=== PATIENT | female | born 1960 | race African-American/Black ===

== ENCOUNTER 2017-02-04 21:03 | Inpatient (IN) | payer OTHER ==
[~2017-02-04] VITALS: Ht 157.5 cm; Wt 53.1 kg
[~2017-02-04 21:03] MED LIST: CEPH-264 PO; HYDR-971 PO; IPRA4AER IH; LEVO750T31 PO; PRED-220 PO
[2017-02-04] MEDS ORDERED: PREDNISONE 20 MG TABLET PO ONE (21:45)
[2017-02-04] MEDS ORDERED: IV NORMAL SALINE 1000ML BAG 1,000 ML IV SCH (21:45)
[2017-02-04] MEDS ORDERED: IPRATRPIUM/ALBUTEROL 0.5/2.5MG 3 ML NEBU. NEB ONE (21:45)
[2017-02-04] MEDS ORDERED: ASPIRIN 81 MG TAB.CHEW PO ONE (21:45)
[2017-02-04 21:56] LABS: BASO # 0.1 x10^3/uL (0.0-0.2); BASO % 1 % (0-3); EOS % 0 % (0-3); HEMOGLOBIN 12.1 g/dL (12.0-15.5); LYMPH # 1.1 x10^3/uL (1.0-4.8); LYMPH % 12 % (24-48); MEAN CORPUSCULAR HEMOGLOBIN 20 pg (25-35); MEAN CORPUSCULAR HGB CONC 32 g/dL (31-37); MEAN CORPUSCULAR VOLUME 64 fL (79-100); MONO % 13 % (0-9); NEUT % 74 % (31-73); PLATELET COUNT 233 x10^3/uL (140-400); RED BLOOD COUNT 5.98 x10^6/uL (3.50-5.40); RED CELL DISTRIBUTION WIDTH 15.4 % (11.5-14.5); WHITE BLOOD COUNT 9.1 x10^3/uL (4.0-11.0)
[2017-02-04 22:09] LABS: CALCIUM 9.5 mg/dL (8.5-10.1); CREATININE 0.9 mg/dL (0.6-1.0); GFR 78.1; POTASSIUM 3.8 mmol/L (3.5-5.1)
[2017-02-04 22:14] LABS: OBC FLU VALID
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
[2017-02-05] MEDS ORDERED: ONDANSETRON PF 4 MG/2 ML VIAL. IV PRN
[2017-02-05] MEDS ORDERED: ACETAMINOPHEN 325 MG TABLET. PO PRN
--- NOTE | 2017-02-05 00:30 | ACF ---
Admission Forms Criteria COPD Clinical Indications for Admission to Inpatient Care (Place 'X' for any and all applicable criteria): Admission is indicated for ANY ONE of the following (1)(2)(3): [X]I. Acute exacerbation by high-risk comorbidity (e.g., pneumonia, dysrhythmia, heart failure, pleural effusion, pneumothorax) or severe underlying COPD (e.g., steroid dependent) [ ]II. Inpatient admission required rather than observation care (see Chronic Obstructive Pulmonary Disease: Observation Care) because of ANY ONE of the following: [ ]a) New or pre-existing signs or symptoms of COPD (eg, dyspnea or Tachypnea at rest or with minimal activity) that persist despite outpatient and observation care treatment [ ]b) New-onset hypoxemia (room air SaO2 less than 90%, PO2 less than 60 mm Hg (8.0 kPa)) that persists despite outpatient and observation care treatment [ ]c) Worsening of pre-existing hypoxemia (eg, new or increased requirement for supplemental oxygen to maintain oxygenation at baseline level) that persists despite outpatient and observation care treatment, with oxygen treatment needs performable only in acute inpatient setting [ ]d) Hypercarbia (PCO2 greater than 40 mm Hg (5.3 kPa))-induced respiratory acidosis (pH less than 7.35) that persists despite outpatient and observation care treatment [ ]e) Supplemental oxygen or respiratory treatments for over 24 hours that are performable only in acute inpatient setting [ ]f) Chest tube placement with active evacuation (e.g., suction, drainage) (5) [ ]g) Other condition, treatment or monitoring requiring inpatient admission [ ]III. Planned invasive surgical or diagnostic procedures requiring acute- care hospitalization [ ]IV. Acute respiratory failure (e.g., uncompensated hypercarbia, severe hypoxemia) [ ]V. Severe comorbid condition (e.g., severe steroid myopathy, acute vertebral fracture) that has acutely worsened pulmonary function [ ]. Confusion state, lethargy, obtundation, stupor or coma Extended stay beyond goal length of stay may be needed for (31)(32): [ ]a ) Respiratory Failure. [ ]b) Severe or persisting hypoxemia or hypercarbia [ ]c) Severe or persistent dyspnea [ ]d) Comorbidities (e.g. chronic heart failure, atrial fibrillation with rapid response, pneumonia) [ ]e) Malnutrition The original [facility] content created by [facility] has been revised. The portions of the content which have been revised are identified through the use of italic text or in bold, and [facility] has neither reviewed nor approved the modified material. All other unmodified content is copyright [facility]. Please see references footnoted in the original [facility] edition 2016 Admission Criteria Met?: Yes CHINA HUERTA Feb 05, 2017 00:30
[2017-02-05 01:34] LABS: PLT ESTIMATE ADEQUATE (ADEQUATE)
[2017-02-05 01:35] LABS: HYPOCHROMIA MARKED; MICROCYTOSIS MARKED; TARGET CELLS MANY
[2017-02-05] MEDS ORDERED: PRED50TA PO (02:11)
[2017-02-05 02:13] VITALS: BP 128/76
[2017-02-05] MEDS: MORPHINE SULFATE 4 MG/ML DISP.SYRIN. IV PRN ×2 (05:52→17:13)
[2017-02-05 07:00] VITALS: BP 144/83
--- NOTE | 2017-02-05 07:09 | EKG ---
[facility] [address] [place] [address] Test Date: 2017-02-04 Test Time: 21:14:44 Pat Name: PAT ASTUDILLO Department: Room: [facility] Gender: Female Organizational Development Manager: : 1960 Requested By: CELE MAYA Order Number: [id number] Reading MD: Yudith Franks Measurements Intervals [place] Rate: 93 P: 57 CT: 180 QRS: 61 QRSD: 76 T: 49 QT: 348 QTc: 435 Interpretive Statements SINUS RHYTHM. MISSING LEAD V4. OTHERWISE NORMAL EKG Electronically Signed On 02-06-2017 20:52:48 CDT by Yudith Franks
[2017-02-05] MEDS: IPRATRPIUM/ALBUTEROL 0.5/2.5MG 3 ML NEBU. NEB SCH ×5 (07:21→19:17)
--- NOTE | 2017-02-05 07:36 | RAD ---
Indication: Chest pain and short of air. Technique: Two-view chest radiograph was obtained. Comparison is from November 19, 2016. Findings: The lungs are clear. The cardiopulmonary silhouette is within normal limits. There is no pleural effusion. The bony structures are intact. Leads overlie the patient. Impression: No acute thoracic findings.
[2017-02-05 11:00] VITALS: BP 138/84
[2017-02-05] MEDS: PANTOPRAZOLE 40 MG TABLET. PO SCH (12:50)
[2017-02-05] MEDS: LORAZEPAM 1 MG TABLET. PO PRN ×2 (12:50→23:47)
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
[2017-02-05] MEDS: LIDO:MAALOX:DONNATAL 1:1:1 15 ML SINGLE DOSE SWSW PRN (17:14)
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
--- NOTE | 2017-02-05 17:52 | PDOC ---
PULMONARY PROGRESS NOTES Vitals Vital Signs Date Time Temp Pulse Resp B/P Pulse Ox O2 Delivery O2 Flow Rate FiO2 02/05/17 17:46 100 Nasal Cannula 2.0 02/05/17 11:00 98.6 87 19 138/84 98.6 Labs Laboratory Tests Test 02/04/17 20:19 02/04/17 21:40 02/05/17 05:45 02/05/17 11:30 Glucose (Fingerstick) 122mg/dL (70-99) White Blood Count 9.1x10^3/uL (4.0-11.0) Red Blood Count 5.98x10^6/uL (3.50-5.40) Hemoglobin 12.1g/dL (12.0-15.5) Hematocrit 38.0% (36.0-47.0) Mean Corpuscular Volume 64fL (79-100) Mean Corpuscular Hemoglobin 20pg (25-35) Mean Corpuscular Hemoglobin Concent 32g/dL (31-37) Red Cell Distribution Width 15.4% (11.5-14.5) Platelet Count 233x10^3/uL (140-400) Neutrophils (%) (Auto) 74% (31-73) Lymphocytes (%) (Auto) 12% (24-48) Monocytes (%) (Auto) 13% (0-9) Eosinophils (%) (Auto) 0% (0-3) Basophils (%) (Auto) 1% (0-3) Neutrophils # (Auto) 6.7x10^3uL (1.8-7.7) Lymphocytes # (Auto) 1.1x10^3/uL (1.0-4.8) Monocytes # (Auto) 1.2x10^3/uL (0.0-1.1) Eosinophils # (Auto) 0.0x10^3/uL (0.0-0.7) Basophils # (Auto) 0.1x10^3/uL (0.0-0.2) Platelet Estimate Adequate (ADEQUATE) Hypochromasia Marked Microcytosis Marked Target Cells Many Sodium Level 143mmol/L (136-145) Potassium Level 3.8mmol/L (3.5-5.1) Chloride Level 105mmol/L (98-107) Carbon Dioxide Level 26mmol/L (21-32) Anion Gap 12 (6-14) Blood Urea Nitrogen 15mg/dL (7-20) Creatinine 0.9mg/dL (0.6-1.0) Estimated GFR (Cockcroft-Gault) 78.1 Glucose Level 117mg/dL (70-99) Calcium Level 9.5mg/dL (8.5-10.1) Troponin I Quantitative < 0.017ng/mL (0.000-0.055) < 0.017ng/mL (0.000-0.055) < 0.017ng/mL (0.000-0.055) Influenza Type A Antigen Negative (NEGATIVE) Influenza Type B Antigen Negative (NEGATIVE) Laboratory Tests Test 02/04/17 20:19 02/04/17 21:40 02/05/17 05:45 02/05/17 11:30 Glucose (Fingerstick) 122mg/dL (70-99) White Blood Count 9.1x10^3/uL (4.0-11.0) Red Blood Count 5.98x10^6/uL (3.50-5.40) Hemoglobin 12.1g/dL (12.0-15.5) Hematocrit 38.0% (36.0-47.0) Mean Corpuscular Volume 64fL (79-100) Mean Corpuscular Hemoglobin 20pg (25-35) Mean Corpuscular Hemoglobin Concent 32g/dL (31-37) Red Cell Distribution Width 15.4% (11.5-14.5) Platelet Count 233x10^3/uL (140-400) Neutrophils (%) (Auto) 74% (31-73) Lymphocytes (%) (Auto) 12% (24-48) Monocytes (%) (Auto) 13% (0-9) Eosinophils (%) (Auto) 0% (0-3) Basophils (%) (Auto) 1% (0-3) Neutrophils # (Auto) 6.7x10^3uL (1.8-7.7) Lymphocytes # (Auto) 1.1x10^3/uL (1.0-4.8) Monocytes # (Auto) 1.2x10^3/uL (0.0-1.1) Eosinophils # (Auto) 0.0x10^3/uL (0.0-0.7) Basophils # (Auto) 0.1x10^3/uL (0.0-0.2) Platelet Estimate Adequate (ADEQUATE) Hypochromasia Marked Microcytosis Marked Target Cells Many Sodium Level 143mmol/L (136-145) Potassium Level 3.8mmol/L (3.5-5.1) Chloride Level 105mmol/L (98-107) Carbon Dioxide Level 26mmol/L (21-32) Anion Gap 12 (6-14) Blood Urea Nitrogen 15mg/dL (7-20) Creatinine 0.9mg/dL (0.6-1.0) Estimated GFR (Cockcroft-Gault) 78.1 Glucose Level 117mg/dL (70-99) Calcium Level 9.5mg/dL (8.5-10.1) Troponin I Quantitative < 0.017ng/mL (0.000-0.055) < 0.017ng/mL (0.000-0.055) < 0.017ng/mL (0.000-0.055) Influenza Type A Antigen Negative (NEGATIVE) Influenza Type B Antigen Negative (NEGATIVE) Medications Active Scripts Medications Dose Route/Sig Days Date Category Prednisone 50 Mg Tablet 1 Tab PO BID 02/05/17 Reported Bliss 5-325 Tablet (Acetaminophen/Hydrocodone Bitart) 1 Each Tablet 1 Tab PO PRN Q6HRS PRN 09/08/16 Rx Bliss 5-325 Tablet (Acetaminophen/Hydrocodone Bitart) 1 Each Tablet 1 Tab PO PRN Q6HRS PRN 07/08/16 Rx Combivent Respimat Inhal (Ipratropium/Albuterol Sulfate) 4 Gm Aer.w.adap 2 Inh IH QID 06/18/15 Reported Impression . full note dictated AECOPD agree with current RX Thanks KOURTNEY HUNTLEY MD Feb 05, 2017 17:52
--- NOTE | 2017-02-05 18:11 | CARD ---
APPROVED REPORT EXAM: Two-dimensional and M-mode echocardiogram with Doppler and color Doppler. Other Information Quality : Average Rhythm : NSR INDICATION Chest Pain 2D DIMENSIONS RVDd2.2 (2.9-3.5cm)Left Atrium(2D)3.0 (1.6-4.0cm) IVSd1.0 (0.7-1.1cm)Aortic Root(2D)2.6 (2.0-3.7cm) LVDd4.4 (3.9-5.9cm)LVOT Diameter2.0 (1.8-2.4cm) PWd1.0 (0.7-1.1cm)LVDs2.7 (2.5-4.0cm) SV62.3 mlLVEF(%)62.5 (>50%) Aortic Valve AoV Peak Bert.124.7cm/sAoV VTI21.7cm AO Peak GR.6.2mmHgLVOT Peak Bert.107.6cm/s LVOT VTI 18.95cmAO Mean GR.3mmHg KERMIT (VMAX)2.20lt5FTL (VTI)2.63cm2 Mitral Valve MV E Aowuvhvo91.2cm/sMV DECEL [id number] MV A Iduogqlt73.9cm/sMV E Mean Gr.2mmHg MV [id number]/A Ratio1.0 MV A Cptlirkf83odPGA (PHT)3.27cm2 TDI E/Lateral E'6.4E/Medial E'9.0 Tricuspid Valve TR P. Bhsmrlaw803nn/sRAP EGYIEHGX3wkLi TR Peak Gr.50jrIvOWAL25ojRi Pulmonary Vein S1 Gdgemuyp05.9cm/sD2 Tsuliims42.9cm/s LEFT VENTRICLE The left ventricle is normal size. There is normal left ventricular wall thickness. Left ventricle sy stolic function is normal. The Ejection Fraction is 60-65%. There is normal LV segmental wall motion. RIGHT VENTRICLE The right ventricle is normal size. The right ventricular systolic function is normal. ATRIA The left atrium size is normal. The right atrium size is normal. The interatrial septum is intact wit h no evidence for an atrial septal defect or patent foramen ovale as noted on 2-D or Doppler imaging. AORTIC VALVE The aortic valve is normal in structure and function. The aortic valve is trileaflet. Doppler and Col or Flow revealed no significant aortic regurgitation. There is no significant aortic valvular stenosi s. MITRAL VALVE The mitral valve is normal in structure and function. There is no mitral valve stenosis. Doppler and Color Flow revealed no mitral valve regurgitation noted. TRICUSPID VALVE The tricuspid valve is normal in structure and function. Doppler and Color Flow revealed trace to mil d tricuspid regurgitation. The PA pressure was estimated at 25 mmHg. There is no tricuspid valve sten osis. PULMONIC VALVE The pulmonic valve is not well visualized. Doppler and Color Flow revealed no pulmonic valvular regur gitation. There is no pulmonic valvular stenosis. GREAT VESSELS The aortic root is normal in size. Normal pulmonary venous flow (Doppler). The IVC is normal in size and collapses >50% with inspiration. PERICARDIAL EFFUSION There is no evidence of significant pericardial effusion. Critical Notification Critical Value: No <Conclusion> Left ventricle systolic function is normal. The Ejection Fraction is 60-65%. There is normal LV segmental wall motion. Technically difficult study
[2017-02-05 19:00] VITALS: BP 114/76
[2017-02-05] MEDS: PREDNISONE 20 MG TABLET PO SCH ×2 (20:37→23:47)
[2017-02-05 23:00] VITALS: BP 134/85
--- NOTE | 2017-02-06 02:12 | CONS ---
DATE OF CONSULTATION: 02/05/2017 ATTENDING PHYSICIAN: Dr. Leslie Leal. REASON FOR CONSULTATION: The patient is seen in pulmonary consultation at the request of Dr. Leal for increasing shortness of air. HISTORY OF PRESENT ILLNESS: The patient is a 56-year-old complaining of shortness of breath over the last 2-3 days, chest pain. She had cough, mostly nonproductive. She continues to smoke. She has underlying COPD, normally does not wear oxygen at home. I was asked to see him in consultation. PAST MEDICAL HISTORY: Remarkable for COPD, tobacco dependence, breast cancer status post radiation and chemo. PAST SURGICAL HISTORY: Right and left hip fracture, left foot surgery. ALLERGIES: LATEX AND PENICILLIN. FAMILY HISTORY: Coronary artery disease. SOCIAL HISTORY: She smokes, denies any alcohol intake. REVIEW OF SYSTEMS: As indicated above, otherwise, a 10-point system was reviewed and negative. CURRENT MEDICATIONS: List was reviewed. PHYSICAL EXAMINATION: VITAL SIGNS: The patient was on 2 liters of oxygen supplementation. No respiratory distress. HEENT: Eyes, the sclerae were nonicteric. NECK: Jugular venous distention was not elevated. No lymphadenopathy. CHEST: Full expansion. LUNGS: Clear. No wheezes. CARDIOVASCULAR: Regular rate and rhythm with S1, S2, no S3. ABDOMEN: Soft, nontender, nondistended. EXTREMITIES: No clubbing, cyanosis or edema. LABORATORY DATA: Reviewed. Chest x-ray reviewed, no new infiltrates. IMPRESSION: 1. Acute exacerbation of chronic obstructive pulmonary disease. 2. Chest pain. Workup in progress per Cardiology. 3. History of breast cancer, status post radiation and chemo. PLAN: 1. Continue current nebulized treatments. 2. Steroids. 3. No need for antibiotics. 4. The patient instructed on the importance of discontinuing her tobacco use. KOURTNEY HUNTLEY MD DR: KATELYN/belia JOB#: [id number] / [id number]
[2017-02-06 03:46] LABS: CALCIUM 9.4 mg/dL (8.5-10.1); CREATININE 0.8 mg/dL (0.6-1.0); GFR 89.5; POTASSIUM 4.2 mmol/L (3.5-5.1)
[2017-02-06 03:51] LABS: CHOLESTEROL/HDL RATIO 3.8
[2017-02-06 04:45] LABS: BASO % 0 % (0-3); EOS % 0 % (0-3); HEMATOCRIT 38.6 % (36.0-47.0); HEMOGLOBIN 12.5 g/dL (12.0-15.5); LYMPH # 1.4 x10^3/uL (1.0-4.8); LYMPH % 17 % (24-48); MEAN CORPUSCULAR HEMOGLOBIN 21 pg (25-35); MEAN CORPUSCULAR HGB CONC 32 g/dL (31-37); MEAN CORPUSCULAR VOLUME 63 fL (79-100); MONO % 3 % (0-9); NEUT % 80 % (31-73); PLATELET COUNT 198 x10^3/uL (140-400); RED BLOOD COUNT 6.09 x10^6/uL (3.50-5.40); RED CELL DISTRIBUTION WIDTH 15.4 % (11.5-14.5); WHITE BLOOD COUNT 8.6 x10^3/uL (4.0-11.0)
[2017-02-06] MEDS: HYDROCODONE/APAP 5/325MG TABLET. PO PRN ×3 (06:37→20:09)
[2017-02-06] MEDS: LORAZEPAM 1 MG TABLET. PO PRN (06:37)
[2017-02-06 07:00] VITALS: BP 134/75
[2017-02-06] MEDS: IPRATRPIUM/ALBUTEROL 0.5/2.5MG 3 ML NEBU. NEB SCH ×4 (07:01→19:22)
[2017-02-06] MEDS: PREDNISONE 20 MG TABLET PO SCH ×2 (09:27→21:47)
[2017-02-06] MEDS: PANTOPRAZOLE 40 MG TABLET. PO SCH (09:27)
[2017-02-06 11:00] VITALS: BP 125/83
--- NOTE | 2017-02-06 11:00 | PDOC ---
PULMONARY PROGRESS NOTES Subjective no increase soa Vitals Vital Signs Date Time Temp Pulse Resp B/P Pulse Ox O2 Delivery O2 Flow Rate FiO2 02/06/17 07:02 99 Room Air 02/06/17 07:00 97.9 85 20 134/75 2.0 97.9 ROS: No Chest Pain General: Alert Lungs: Clear Cardiovascular: S1, S2 Abdomen: Soft Neuro Exam: Alert Extremities: No Edema Labs Laboratory Tests Test 02/04/17 20:19 02/04/17 21:40 02/05/17 05:45 02/05/17 11:30 Glucose (Fingerstick) 122mg/dL (70-99) White Blood Count 9.1x10^3/uL (4.0-11.0) Red Blood Count 5.98x10^6/uL (3.50-5.40) Hemoglobin 12.1g/dL (12.0-15.5) Hematocrit 38.0% (36.0-47.0) Mean Corpuscular Volume 64fL (79-100) Mean Corpuscular Hemoglobin 20pg (25-35) Mean Corpuscular Hemoglobin Concent 32g/dL (31-37) Red Cell Distribution Width 15.4% (11.5-14.5) Platelet Count 233x10^3/uL (140-400) Neutrophils (%) (Auto) 74% (31-73) Lymphocytes (%) (Auto) 12% (24-48) Monocytes (%) (Auto) 13% (0-9) Eosinophils (%) (Auto) 0% (0-3) Basophils (%) (Auto) 1% (0-3) Neutrophils # (Auto) 6.7x10^3uL (1.8-7.7) Lymphocytes # (Auto) 1.1x10^3/uL (1.0-4.8) Monocytes # (Auto) 1.2x10^3/uL (0.0-1.1) Eosinophils # (Auto) 0.0x10^3/uL (0.0-0.7) Basophils # (Auto) 0.1x10^3/uL (0.0-0.2) Platelet Estimate Adequate (ADEQUATE) Hypochromasia Marked Microcytosis Marked Target Cells Many Sodium Level 143mmol/L (136-145) Potassium Level 3.8mmol/L (3.5-5.1) Chloride Level 105mmol/L (98-107) Carbon Dioxide Level 26mmol/L (21-32) Anion Gap 12 (6-14) Blood Urea Nitrogen 15mg/dL (7-20) Creatinine 0.9mg/dL (0.6-1.0) Estimated GFR (Cockcroft-Gault) 78.1 Glucose Level 117mg/dL (70-99) Calcium Level 9.5mg/dL (8.5-10.1) Troponin I Quantitative < 0.017ng/mL (0.000-0.055) < 0.017ng/mL (0.000-0.055) < 0.017ng/mL (0.000-0.055) Influenza Type A Antigen Negative (NEGATIVE) Influenza Type B Antigen Negative (NEGATIVE) Test 02/06/17 03:21 White Blood Count 8.6x10^3/uL (4.0-11.0) Red Blood Count 6.09x10^6/uL (3.50-5.40) Hemoglobin 12.5g/dL (12.0-15.5) Hematocrit 38.6% (36.0-47.0) Mean Corpuscular Volume 63fL (79-100) Mean Corpuscular Hemoglobin 21pg (25-35) Mean Corpuscular Hemoglobin Concent 32g/dL (31-37) Red Cell Distribution Width 15.4% (11.5-14.5) Platelet Count 198x10^3/uL (140-400) Neutrophils (%) (Auto) 80% (31-73) Lymphocytes (%) (Auto) 17% (24-48) Monocytes (%) (Auto) 3% (0-9) Eosinophils (%) (Auto) 0% (0-3) Basophils (%) (Auto) 0% (0-3) Neutrophils # (Auto) 6.8x10^3uL (1.8-7.7) Lymphocytes # (Auto) 1.4x10^3/uL (1.0-4.8) Monocytes # (Auto) 0.3x10^3/uL (0.0-1.1) Eosinophils # (Auto) 0.0x10^3/uL (0.0-0.7) Basophils # (Auto) 0.0x10^3/uL (0.0-0.2) Sodium Level 140mmol/L (136-145) Potassium Level 4.2mmol/L (3.5-5.1) Chloride Level 102mmol/L (98-107) Carbon Dioxide Level 24mmol/L (21-32) Anion Gap 14 (6-14) Blood Urea Nitrogen 15mg/dL (7-20) Creatinine 0.8mg/dL (0.6-1.0) Estimated GFR (Cockcroft-Gault) 89.5 Glucose Level 116mg/dL (70-99) Calcium Level 9.4mg/dL (8.5-10.1) Triglycerides Level 48mg/dL (0-150) Cholesterol Level 231mg/dL (0-200) LDL Cholesterol, Calculated 160mg/dL (0-100) VLDL Cholesterol, Calculated 10mg/dL (0-40) HDL Cholesterol 61mg/dL (40-60) Cholesterol/HDL Ratio 3.8 Laboratory Tests Test 02/05/17 11:30 02/06/17 03:21 Troponin I Quantitative < 0.017ng/mL (0.000-0.055) White Blood Count 8.6x10^3/uL (4.0-11.0) Red Blood Count 6.09x10^6/uL (3.50-5.40) Hemoglobin 12.5g/dL (12.0-15.5) Hematocrit 38.6% (36.0-47.0) Mean Corpuscular Volume 63fL (79-100) Mean Corpuscular Hemoglobin 21pg (25-35) Mean Corpuscular Hemoglobin Concent 32g/dL (31-37) Red Cell Distribution Width 15.4% (11.5-14.5) Platelet Count 198x10^3/uL (140-400) Neutrophils (%) (Auto) 80% (31-73) Lymphocytes (%) (Auto) 17% (24-48) Monocytes (%) (Auto) 3% (0-9) Eosinophils (%) (Auto) 0% (0-3) Basophils (%) (Auto) 0% (0-3) Neutrophils # (Auto) 6.8x10^3uL (1.8-7.7) Lymphocytes # (Auto) 1.4x10^3/uL (1.0-4.8) Monocytes # (Auto) 0.3x10^3/uL (0.0-1.1) Eosinophils # (Auto) 0.0x10^3/uL (0.0-0.7) Basophils # (Auto) 0.0x10^3/uL (0.0-0.2) Sodium Level 140mmol/L (136-145) Potassium Level 4.2mmol/L (3.5-5.1) Chloride Level 102mmol/L (98-107) Carbon Dioxide Level 24mmol/L (21-32) Anion Gap 14 (6-14) Blood Urea Nitrogen 15mg/dL (7-20) Creatinine 0.8mg/dL (0.6-1.0) Estimated GFR (Cockcroft-Gault) 89.5 Glucose Level 116mg/dL (70-99) Calcium Level 9.4mg/dL (8.5-10.1) Triglycerides Level 48mg/dL (0-150) Cholesterol Level 231mg/dL (0-200) LDL Cholesterol, Calculated 160mg/dL (0-100) VLDL Cholesterol, Calculated 10mg/dL (0-40) HDL Cholesterol 61mg/dL (40-60) Cholesterol/HDL Ratio 3.8 Medications Active Scripts Medications Dose Route/Sig Days Date Category Prednisone 50 Mg Tablet 1 Tab PO BID 02/05/17 Reported [place] 5-325 Tablet (Acetaminophen/Hydrocodone Bitart) 1 Each Tablet 1 Tab PO PRN Q6HRS PRN 09/08/16 Rx [place] 5-325 Tablet (Acetaminophen/Hydrocodone Bitart) 1 Each Tablet 1 Tab PO PRN Q6HRS PRN 07/08/16 Rx Combivent Respimat Inhal (Ipratropium/Albuterol Sulfate) 4 Gm Aer.w.adap 2 Inh IH QID 06/18/15 Reported Impression . 1. Acute exacerbation of chronic obstructive pulmonary disease. 2. Chest pain. Workup in progress per Cardiology. 3. History of breast cancer, status post radiation and chemo. 4. Dysphagia Plan . resp status compensated follow Gi input 1. Continue current nebulized treatments. 2. Steroids. 3. No need for antibiotics. 4. The patient instructed on the importance of discontinuing her tobacco use. KOURTNEY HUNTLEY MD Feb 06, 2017 10:59
--- NOTE | 2017-02-06 13:14 | PDOC ---
PROGRESS NOTES Chief Complaint Chief Complaint 1. Acute exacerbation of chronic obstructive pulmonary disease. 2. Chest pain. Workup in progress per Cardiology. 3. History of breast cancer, status post radiation and chemo. History of Present Illness History of Present Illness Patient was lying in the bed, friend was present at the bedside. Pt. explained her GI symptoms in detail, she has some dysphagia? epigastric discomfort? left side ribs pain? her questions were answered and plan of care discussed with her , RN and friend. Vitals Vitals Vital Signs Date Time Temp Pulse Resp B/P Pulse Ox O2 Delivery O2 Flow Rate FiO2 02/06/17 11:00 98.4 78 19 125/83 97 Nasal Cannula 2.0 98.4 Physical Exam General: Alert, Oriented X3, Cooperative, No acute distress Heart: Regular rate, Normal S1, Normal S2, Other (left chest wall tenderness upon palpitation) Abdomen: Soft Extremities: No edema Skin: No breakdown, No significant lesion Labs LABS Laboratory Tests Test 02/06/17 03:21 White Blood Count 8.6x10^3/uL (4.0-11.0) Red Blood Count 6.09x10^6/uL (3.50-5.40) Hemoglobin 12.5g/dL (12.0-15.5) Hematocrit 38.6% (36.0-47.0) Mean Corpuscular Volume 63fL (79-100) Mean Corpuscular Hemoglobin 21pg (25-35) Mean Corpuscular Hemoglobin Concent 32g/dL (31-37) Red Cell Distribution Width 15.4% (11.5-14.5) Platelet Count 198x10^3/uL (140-400) Neutrophils (%) (Auto) 80% (31-73) Lymphocytes (%) (Auto) 17% (24-48) Monocytes (%) (Auto) 3% (0-9) Eosinophils (%) (Auto) 0% (0-3) Basophils (%) (Auto) 0% (0-3) Neutrophils # (Auto) 6.8x10^3uL (1.8-7.7) Lymphocytes # (Auto) 1.4x10^3/uL (1.0-4.8) Monocytes # (Auto) 0.3x10^3/uL (0.0-1.1) Eosinophils # (Auto) 0.0x10^3/uL (0.0-0.7) Basophils # (Auto) 0.0x10^3/uL (0.0-0.2) Sodium Level 140mmol/L (136-145) Potassium Level 4.2mmol/L (3.5-5.1) Chloride Level 102mmol/L (98-107) Carbon Dioxide Level 24mmol/L (21-32) Anion Gap 14 (6-14) Blood Urea Nitrogen 15mg/dL (7-20) Creatinine 0.8mg/dL (0.6-1.0) Estimated GFR (Cockcroft-Gault) 89.5 Glucose Level 116mg/dL (70-99) Calcium Level 9.4mg/dL (8.5-10.1) Triglycerides Level 48mg/dL (0-150) Cholesterol Level 231mg/dL (0-200) LDL Cholesterol, Calculated 160mg/dL (0-100) VLDL Cholesterol, Calculated 10mg/dL (0-40) HDL Cholesterol 61mg/dL (40-60) Cholesterol/HDL Ratio 3.8 Review of Systems Review of Systems Denies fever, chills Denies SOB, CP reported left lower ribs discomfort Dysphasia Nausea Alert, awake, oriented Assessment and Plan Assessmemt and Plan 1. Acute exacerbation of chronic obstructive pulmonary disease. 2. Chest pain. Workup in progress per Cardiology. 3. History of breast cancer, status post radiation and chemo. Plan Plan . PLAN: GI consult for dysphasia Continue nebulized treatments and Steroids per Pul. recommendations Recheck labs in AM PTOT Patient instructed on the importance of discontinuing her tobacco use Appreciate subspecialities inputs and recommendations Problems Medical Problems: (1) Chest pain Status: Acute (2) COPD with acute exacerbation Status: Acute Problems: Comment Review of Relevant I have reviewed the following items roger (where applicable) has been applied. Labs Laboratory Tests Test 02/04/17 20:19 02/04/17 21:40 02/05/17 05:45 02/05/17 11:30 Glucose (Fingerstick) 122mg/dL (70-99) White Blood Count 9.1x10^3/uL (4.0-11.0) Red Blood Count 5.98x10^6/uL (3.50-5.40) Hemoglobin 12.1g/dL (12.0-15.5) Hematocrit 38.0% (36.0-47.0) Mean Corpuscular Volume 64fL (79-100) Mean Corpuscular Hemoglobin 20pg (25-35) Mean Corpuscular Hemoglobin Concent 32g/dL (31-37) Red Cell Distribution Width 15.4% (11.5-14.5) Platelet Count 233x10^3/uL (140-400) Neutrophils (%) (Auto) 74% (31-73) Lymphocytes (%) (Auto) 12% (24-48) Monocytes (%) (Auto) 13% (0-9) Eosinophils (%) (Auto) 0% (0-3) Basophils (%) (Auto) 1% (0-3) Neutrophils # (Auto) 6.7x10^3uL (1.8-7.7) Lymphocytes # (Auto) 1.1x10^3/uL (1.0-4.8) Monocytes # (Auto) 1.2x10^3/uL (0.0-1.1) Eosinophils # (Auto) 0.0x10^3/uL (0.0-0.7) Basophils # (Auto) 0.1x10^3/uL (0.0-0.2) Platelet Estimate Adequate (ADEQUATE) Hypochromasia Marked Microcytosis Marked Target Cells Many Sodium Level 143mmol/L (136-145) Potassium Level 3.8mmol/L (3.5-5.1) Chloride Level 105mmol/L (98-107) Carbon Dioxide Level 26mmol/L (21-32) Anion Gap 12 (6-14) Blood Urea Nitrogen 15mg/dL (7-20) Creatinine 0.9mg/dL (0.6-1.0) Estimated GFR (Cockcroft-Gault) 78.1 Glucose Level 117mg/dL (70-99) Calcium Level 9.5mg/dL (8.5-10.1) Troponin I Quantitative < 0.017ng/mL (0.000-0.055) < 0.017ng/mL (0.000-0.055) < 0.017ng/mL (0.000-0.055) Influenza Type A Antigen Negative (NEGATIVE) Influenza Type B Antigen Negative (NEGATIVE) Test 02/06/17 03:21 White Blood Count 8.6x10^3/uL (4.0-11.0) Red Blood Count 6.09x10^6/uL (3.50-5.40) Hemoglobin 12.5g/dL (12.0-15.5) Hematocrit 38.6% (36.0-47.0) Mean Corpuscular Volume 63fL (79-100) Mean Corpuscular Hemoglobin 21pg (25-35) Mean Corpuscular Hemoglobin Concent 32g/dL (31-37) Red Cell Distribution Width 15.4% (11.5-14.5) Platelet Count 198x10^3/uL (140-400) Neutrophils (%) (Auto) 80% (31-73) Lymphocytes (%) (Auto) 17% (24-48) Monocytes (%) (Auto) 3% (0-9) Eosinophils (%) (Auto) 0% (0-3) Basophils (%) (Auto) 0% (0-3) Neutrophils # (Auto) 6.8x10^3uL (1.8-7.7) Lymphocytes # (Auto) 1.4x10^3/uL (1.0-4.8) Monocytes # (Auto) 0.3x10^3/uL (0.0-1.1) Eosinophils # (Auto) 0.0x10^3/uL (0.0-0.7) Basophils # (Auto) 0.0x10^3/uL (0.0-0.2) Sodium Level 140mmol/L (136-145) Potassium Level 4.2mmol/L (3.5-5.1) Chloride Level 102mmol/L (98-107) Carbon Dioxide Level 24mmol/L (21-32) Anion Gap 14 (6-14) Blood Urea Nitrogen 15mg/dL (7-20) Creatinine 0.8mg/dL (0.6-1.0) Estimated GFR (Cockcroft-Gault) 89.5 Glucose Level 116mg/dL (70-99) Calcium Level 9.4mg/dL (8.5-10.1) Triglycerides Level 48mg/dL (0-150) Cholesterol Level 231mg/dL (0-200) LDL Cholesterol, Calculated 160mg/dL (0-100) VLDL Cholesterol, Calculated 10mg/dL (0-40) HDL Cholesterol 61mg/dL (40-60) Cholesterol/HDL Ratio 3.8 Laboratory Tests Test 02/06/17 03:21 White Blood Count 8.6x10^3/uL (4.0-11.0) Red Blood Count 6.09x10^6/uL (3.50-5.40) Hemoglobin 12.5g/dL (12.0-15.5) Hematocrit 38.6% (36.0-47.0) Mean Corpuscular Volume 63fL (79-100) Mean Corpuscular Hemoglobin 21pg (25-35) Mean Corpuscular Hemoglobin Concent 32g/dL (31-37) Red Cell Distribution Width 15.4% (11.5-14.5) Platelet Count 198x10^3/uL (140-400) Neutrophils (%) (Auto) 80% (31-73) Lymphocytes (%) (Auto) 17% (24-48) Monocytes (%) (Auto) 3% (0-9) Eosinophils (%) (Auto) 0% (0-3) Basophils (%) (Auto) 0% (0-3) Neutrophils # (Auto) 6.8x10^3uL (1.8-7.7) Lymphocytes # (Auto) 1.4x10^3/uL (1.0-4.8) Monocytes # (Auto) 0.3x10^3/uL (0.0-1.1) Eosinophils # (Auto) 0.0x10^3/uL (0.0-0.7) Basophils # (Auto) 0.0x10^3/uL (0.0-0.2) Sodium Level 140mmol/L (136-145) Potassium Level 4.2mmol/L (3.5-5.1) Chloride Level 102mmol/L (98-107) Carbon Dioxide Level 24mmol/L (21-32) Anion Gap 14 (6-14) Blood Urea Nitrogen 15mg/dL (7-20) Creatinine 0.8mg/dL (0.6-1.0) Estimated GFR (Cockcroft-Gault) 89.5 Glucose Level 116mg/dL (70-99) Calcium Level 9.4mg/dL (8.5-10.1) Triglycerides Level 48mg/dL (0-150) Cholesterol Level 231mg/dL (0-200) LDL Cholesterol, Calculated 160mg/dL (0-100) VLDL Cholesterol, Calculated 10mg/dL (0-40) HDL Cholesterol 61mg/dL (40-60) Cholesterol/HDL Ratio 3.8 Medications Current Medications Sodium Chloride (Iv Sodium Chloride 0.9% 1000ml Bag) 1,000 ml @ 1,000 mls/hr Q1H IV Last administered on 02/04/17 22:09; Start 02/04/17 at 21:45; Stop at 22:44; Status DC Albuterol/ Ipratropium (Duoneb) 3 ml 1X ONCE NEB Last administered on 00:17; Start 02/04/17 at 21:45; Stop 02/04/17 at 21:46; Status DC Prednisone (Prednisone) 60 mg 1X ONCE PO ; Start 02/04/17 at 21:45; Stop at 21:46; Status DC Aspirin (Children'S Aspirin) 324 mg 1X ONCE PO Last administered on 02/04/17 22:09; Start 02/04/17 at 21:45; Stop 02/04/17 at 21:46; Status DC Ondansetron HCl (Zofran) 4 mg PRN Q8HRS PRN IV NAUSEA/VOMITING Last administered on 02/05/17 12:17; Start 02/05/17 at 00:00; Stop 02/05/17 at 23:59 ; Status DC Morphine Sulfate 4 mg PRN Q2HR PRN IV PAIN Last administered on 02/05/17 17:13 ; Start 02/05/17 at 00:00; Stop 02/05/17 at 23:59; Status DC Acetaminophen (Tylenol) 650 mg PRN Q4HRS PRN PO FEVER Last administered on 02/05 23:47; Start 02/05/17 at 00:00; Stop 02/05/17 at 23:59; Status DC Albuterol/ Ipratropium (Duoneb) 3 ml RTQID NEB Last administered on 02/05/17 11:01; Start 02/05/17 at 08:00; Stop 02/05/17 at 11:40; Status DC Acetaminophen/ Hydrocodone Bitart (Lortab 5/325) 1 tab PRN Q6HRS PRN PO PAIN Last administered on 02/06/17 06:37; Start 02/05/17 at 11:45 Albuterol/ Ipratropium (Duoneb) 3 ml RTQID NEB Last administered on 02/06/17 07:01; Start 02/05/17 at 12:00 Prednisone (Prednisone) 50 mg BID PO Last administered on 02/06/17 09:27; Start 02/05/17 at 21:00 Pantoprazole Sodium (Protonix) 40 mg DAILYAC PO Last administered on 02/06/17 09:27; Start 02/05/17 at 13:00 Lorazepam (Ativan) 1 mg PRN Q6HRS PRN PO ANXIETY / AGITATION Last administered on 02/06/17 06:37; Start 02/05/17 at 12:45 Multi-Ingredient Mouthwash/Gargle (Gi Cocktail Single Dose) 15 ml PRN TID PRN SWSW CHEST PAIN Last administered on 02/05/17 17:14; Start 02/05/17 at 14:30 Active Scripts Active [place] 5-325 Tablet (Acetaminophen/Hydrocodone Bitart) 1 Each Tablet 1 Tab PO PRN Q6HRS PRN [place] 5-325 Tablet (Acetaminophen/Hydrocodone Bitart) 1 Each Tablet 1 Tab PO PRN Q6HRS PRN Reported Prednisone 50 Mg Tablet 1 Tab PO BID Combivent Respimat Inhal (Ipratropium/Albuterol Sulfate) 4 Gm Aer.w.adap 2 Inh IH QID Vitals/I & O Vital Sign - Last 24 Hours 02/05/17 02/05/17 02/05/17 02/05/17 15:00 17:46 19:00 19:19 Temp 100.2 100.2 Pulse 80 Resp 20 B/P 114/76 Pulse Ox 100 97 100 O2 Delivery Nasal Cannula Nasal Cannula Nasal Cannula Nasal Cannula O2 Flow Rate 2.0 2.0 2.0 02/05/17 02/05/17 02/05/17 02/06/17 19:35 20:37 23:00 06:37 Temp 98.7 100.7 98.7 100.7 Pulse 87 Resp 20 B/P 134/85 Pulse Ox 95 95 O2 Delivery Nasal Cannula Room Air Nasal Cannula O2 Flow Rate 4.0 2.0 02/06/17 02/06/17 02/06/17 02/06/17 07:00 07:02 08:00 11:00 Temp 97.9 98.4 97.9 98.4 Pulse 85 78 Resp 20 19 B/P 134/75 125/83 Pulse Ox 99 99 97 O2 Delivery Nasal Cannula Room Air Nasal Cannula Nasal Cannula O2 Flow Rate 2.0 4.0 2.0 Intake and Output 02/05/17 02/05/17 02/06/17 15:00 23:00 07:00 Intake Total 500 ml 1050 ml 180 ml Output Total 650 ml Balance 500 ml 400 ml 180 ml BIBI RIDER III DO Feb 06, 2017 13:14
[2017-02-06 15:00] VITALS: BP 126/78
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
[2017-02-06 19:00] VITALS: BP 136/77
[2017-02-06] MEDS ORDERED: ONDANSETRON PF 4 MG/2 ML VIAL. IV PRN (22:00)
[2017-02-06 23:00] VITALS: BP 141/83
[2017-02-07 03:00] VITALS: BP 142/66
[2017-02-07] MEDS ORDERED: LORAZEPAM 0.5 MG TABLET. PO PRN (03:45)
[2017-02-07] MEDS ORDERED: MORPHINE SULFATE 2 MG/ML DISP.SYRIN. IV PRN (03:45)
[2017-02-07 04:06] LABS: BASO % 0 % (0-3); EOS % 0 % (0-3); HEMATOCRIT 39.4 % (36.0-47.0); HEMOGLOBIN 12.5 g/dL (12.0-15.5); LYMPH # 2.4 x10^3/uL (1.0-4.8); LYMPH % 32 % (24-48); MEAN CORPUSCULAR HEMOGLOBIN 20 pg (25-35); MEAN CORPUSCULAR HGB CONC 32 g/dL (31-37); MEAN CORPUSCULAR VOLUME 64 fL (79-100); MONO % 10 % (0-9); NEUT % 58 % (31-73); PLATELET COUNT 204 x10^3/uL (140-400); RED CELL DISTRIBUTION WIDTH 15.6 % (11.5-14.5); WHITE BLOOD COUNT 7.5 x10^3/uL (4.0-11.0)
[2017-02-07 04:11] LABS: CALCIUM 9.5 mg/dL (8.5-10.1); CREATININE 0.8 mg/dL (0.6-1.0); GFR 89.5
[2017-02-07] MEDS: IV NORMAL SALINE 1000ML BAG 1,000 ML IV SCH (04:35)
[2017-02-07] MEDS ORDERED: LORAZEPAM 2 MG/ML VIAL IV PRN (04:45)
[2017-02-07] MEDS: IPRATRPIUM/ALBUTEROL 0.5/2.5MG 3 ML NEBU. NEB SCH ×4 (06:51→20:00)
[2017-02-07] MEDS: PANTOPRAZOLE 40 MG TABLET. PO SCH (07:30)
[2017-02-07] MEDS ORDERED: BARIUM SULFATE PO ONE (08:00)
[2017-02-07] MEDS ORDERED: SIMETHICONE/SOD BICARB/CITRIC ACID PACKET. PO ONE (08:00)
[2017-02-07] MEDS ORDERED: BARIUM SULFATE 60% 355 ML SUSP PO ONE (08:00)
[2017-02-07] MEDS: PREDNISONE 20 MG TABLET PO SCH ×2 (09:00→20:53)
--- NOTE | 2017-02-07 09:18 | RAD ---
Esophagram, 02/07/2017: History: Food gets stuck, vomiting The study was performed utilizing high density and regular liquid barium. 3.8 minutes of fluoroscopy time is utilized. 7 static and dynamic fluoroscopic images were recorded. There is no obstruction to flow of the barium through the cervical esophagus. There are mild posterior impressions upon the cervical esophagus due to cervical spurs. The esophageal peristalsis is minimally decreased with stasis of some material in the thoracic esophagus in the recumbent position. No obstructing thoracic esophageal process is seen. No hiatal hernia or gastroesophageal reflux was demonstrated. There is mild smooth narrowing of the distal esophagus at the GE junction level. This open up to a diameter of 7 mm during the exam. IMPRESSION: 1. Mild smooth narrowing at the GE junction level suggesting a benign stricture. 2. Mildly decreased esophageal peristalsis.
[2017-02-07 11:00] VITALS: BP 132/82
--- NOTE | 2017-02-07 11:11 | PDOC ---
PULMONARY PROGRESS NOTES Subjective no increase soa Vitals Vital Signs Date Time Temp Pulse Resp B/P Pulse Ox O2 Delivery O2 Flow Rate FiO2 02/07/17 09:47 Nasal Cannula 2.0 02/07/17 06:51 100 02/07/17 03:00 98.4 74 18 142/66 98.4 ROS: No Chest Pain General: Alert Lungs: Clear Cardiovascular: S1, S2 Abdomen: Soft Neuro Exam: Alert Extremities: No Edema Labs Laboratory Tests Test 02/05/17 11:30 02/06/17 03:21 02/07/17 03:10 Troponin I Quantitative < 0.017ng/mL (0.000-0.055) White Blood Count 8.6x10^3/uL (4.0-11.0) 7.5x10^3/uL (4.0-11.0) Red Blood Count 6.09x10^6/uL (3.50-5.40) 6.20x10^6/uL (3.50-5.40) Hemoglobin 12.5g/dL (12.0-15.5) 12.5g/dL (12.0-15.5) Hematocrit 38.6% (36.0-47.0) 39.4% (36.0-47.0) Mean Corpuscular Volume 63fL (79-100) 64fL (79-100) Mean Corpuscular Hemoglobin 21pg (25-35) 20pg (25-35) Mean Corpuscular Hemoglobin Concent 32g/dL (31-37) 32g/dL (31-37) Red Cell Distribution Width 15.4% (11.5-14.5) 15.6% (11.5-14.5) Platelet Count 198x10^3/uL (140-400) 204x10^3/uL (140-400) Neutrophils (%) (Auto) 80% (31-73) 58% (31-73) Lymphocytes (%) (Auto) 17% (24-48) 32% (24-48) Monocytes (%) (Auto) 3% (0-9) 10% (0-9) Eosinophils (%) (Auto) 0% (0-3) 0% (0-3) Basophils (%) (Auto) 0% (0-3) 0% (0-3) Neutrophils # (Auto) 6.8x10^3uL (1.8-7.7) 4.4x10^3uL (1.8-7.7) Lymphocytes # (Auto) 1.4x10^3/uL (1.0-4.8) 2.4x10^3/uL (1.0-4.8) Monocytes # (Auto) 0.3x10^3/uL (0.0-1.1) 0.7x10^3/uL (0.0-1.1) Eosinophils # (Auto) 0.0x10^3/uL (0.0-0.7) 0.0x10^3/uL (0.0-0.7) Basophils # (Auto) 0.0x10^3/uL (0.0-0.2) 0.0x10^3/uL (0.0-0.2) Sodium Level 140mmol/L (136-145) 141mmol/L (136-145) Potassium Level 4.2mmol/L (3.5-5.1) 4.0mmol/L (3.5-5.1) Chloride Level 102mmol/L (98-107) 102mmol/L (98-107) Carbon Dioxide Level 24mmol/L (21-32) 29mmol/L (21-32) Anion Gap 14 (6-14) 10 (6-14) Blood Urea Nitrogen 15mg/dL (7-20) 27mg/dL (7-20) Creatinine 0.8mg/dL (0.6-1.0) 0.8mg/dL (0.6-1.0) Estimated GFR (Cockcroft-Gault) 89.5 89.5 Glucose Level 116mg/dL (70-99) 136mg/dL (70-99) Calcium Level 9.4mg/dL (8.5-10.1) 9.5mg/dL (8.5-10.1) Triglycerides Level 48mg/dL (0-150) Cholesterol Level 231mg/dL (0-200) LDL Cholesterol, Calculated 160mg/dL (0-100) VLDL Cholesterol, Calculated 10mg/dL (0-40) HDL Cholesterol 61mg/dL (40-60) Cholesterol/HDL Ratio 3.8 Laboratory Tests Test 02/07/17 03:10 White Blood Count 7.5x10^3/uL (4.0-11.0) Red Blood Count 6.20x10^6/uL (3.50-5.40) Hemoglobin 12.5g/dL (12.0-15.5) Hematocrit 39.4% (36.0-47.0) Mean Corpuscular Volume 64fL (79-100) Mean Corpuscular Hemoglobin 20pg (25-35) Mean Corpuscular Hemoglobin Concent 32g/dL (31-37) Red Cell Distribution Width 15.6% (11.5-14.5) Platelet Count 204x10^3/uL (140-400) Neutrophils (%) (Auto) 58% (31-73) Lymphocytes (%) (Auto) 32% (24-48) Monocytes (%) (Auto) 10% (0-9) Eosinophils (%) (Auto) 0% (0-3) Basophils (%) (Auto) 0% (0-3) Neutrophils # (Auto) 4.4x10^3uL (1.8-7.7) Lymphocytes # (Auto) 2.4x10^3/uL (1.0-4.8) Monocytes # (Auto) 0.7x10^3/uL (0.0-1.1) Eosinophils # (Auto) 0.0x10^3/uL (0.0-0.7) Basophils # (Auto) 0.0x10^3/uL (0.0-0.2) Sodium Level 141mmol/L (136-145) Potassium Level 4.0mmol/L (3.5-5.1) Chloride Level 102mmol/L (98-107) Carbon Dioxide Level 29mmol/L (21-32) Anion Gap 10 (6-14) Blood Urea Nitrogen 27mg/dL (7-20) Creatinine 0.8mg/dL (0.6-1.0) Estimated GFR (Cockcroft-Gault) 89.5 Glucose Level 136mg/dL (70-99) Calcium Level 9.5mg/dL (8.5-10.1) Medications Active Scripts Medications Dose Route/Sig Days Date Category Prednisone 50 Mg Tablet 1 Tab PO BID 02/05/17 Reported [place] 5-325 Tablet (Acetaminophen/Hydrocodone Bitart) 1 Each Tablet 1 Tab PO PRN Q6HRS PRN 09/08/16 Rx [place] 5-325 Tablet (Acetaminophen/Hydrocodone Bitart) 1 Each Tablet 1 Tab PO PRN Q6HRS PRN 07/08/16 Rx Combivent Respimat Inhal (Ipratropium/Albuterol Sulfate) 4 Gm Aer.w.adap 2 Inh IH QID 06/18/15 Reported Impression . 1. Acute exacerbation of chronic obstructive pulmonary disease. 2. Chest pain. Workup in progress per Cardiology. 3. History of breast cancer, status post radiation and chemo. 4. Dysphagia Plan . resp status compensated I WILL S/O CALL IF NEEDED THANKS KOURTNEY HUNTLEY MD Feb 07, 2017 11:10
--- NOTE | 2017-02-07 11:44 | PDOC ---
G I PROGRESS NOTE Reason for Follow-up Dysphagia Subjective Developed fever after uneventful esophagram with possible stricture Physical Exam Lungs clear CV S1 S2 ABD +BS, soft, nontender Review of Relevant I have reviewed the following items roger (where applicable) has been applied. Labs Laboratory Tests Test 02/06/17 03:21 02/07/17 03:10 White Blood Count 8.6x10^3/uL (4.0-11.0) 7.5x10^3/uL (4.0-11.0) Red Blood Count 6.09x10^6/uL (3.50-5.40) 6.20x10^6/uL (3.50-5.40) Hemoglobin 12.5g/dL (12.0-15.5) 12.5g/dL (12.0-15.5) Hematocrit 38.6% (36.0-47.0) 39.4% (36.0-47.0) Mean Corpuscular Volume 63fL (79-100) 64fL (79-100) Mean Corpuscular Hemoglobin 21pg (25-35) 20pg (25-35) Mean Corpuscular Hemoglobin Concent 32g/dL (31-37) 32g/dL (31-37) Red Cell Distribution Width 15.4% (11.5-14.5) 15.6% (11.5-14.5) Platelet Count 198x10^3/uL (140-400) 204x10^3/uL (140-400) Neutrophils (%) (Auto) 80% (31-73) 58% (31-73) Lymphocytes (%) (Auto) 17% (24-48) 32% (24-48) Monocytes (%) (Auto) 3% (0-9) 10% (0-9) Eosinophils (%) (Auto) 0% (0-3) 0% (0-3) Basophils (%) (Auto) 0% (0-3) 0% (0-3) Neutrophils # (Auto) 6.8x10^3uL (1.8-7.7) 4.4x10^3uL (1.8-7.7) Lymphocytes # (Auto) 1.4x10^3/uL (1.0-4.8) 2.4x10^3/uL (1.0-4.8) Monocytes # (Auto) 0.3x10^3/uL (0.0-1.1) 0.7x10^3/uL (0.0-1.1) Eosinophils # (Auto) 0.0x10^3/uL (0.0-0.7) 0.0x10^3/uL (0.0-0.7) Basophils # (Auto) 0.0x10^3/uL (0.0-0.2) 0.0x10^3/uL (0.0-0.2) Sodium Level 140mmol/L (136-145) 141mmol/L (136-145) Potassium Level 4.2mmol/L (3.5-5.1) 4.0mmol/L (3.5-5.1) Chloride Level 102mmol/L (98-107) 102mmol/L (98-107) Carbon Dioxide Level 24mmol/L (21-32) 29mmol/L (21-32) Anion Gap 14 (6-14) 10 (6-14) Blood Urea Nitrogen 15mg/dL (7-20) 27mg/dL (7-20) Creatinine 0.8mg/dL (0.6-1.0) 0.8mg/dL (0.6-1.0) Estimated GFR (Cockcroft-Gault) 89.5 89.5 Glucose Level 116mg/dL (70-99) 136mg/dL (70-99) Calcium Level 9.4mg/dL (8.5-10.1) 9.5mg/dL (8.5-10.1) Triglycerides Level 48mg/dL (0-150) Cholesterol Level 231mg/dL (0-200) LDL Cholesterol, Calculated 160mg/dL (0-100) VLDL Cholesterol, Calculated 10mg/dL (0-40) HDL Cholesterol 61mg/dL (40-60) Cholesterol/HDL Ratio 3.8 Laboratory Tests Test 02/07/17 03:10 White Blood Count 7.5x10^3/uL (4.0-11.0) Red Blood Count 6.20x10^6/uL (3.50-5.40) Hemoglobin 12.5g/dL (12.0-15.5) Hematocrit 39.4% (36.0-47.0) Mean Corpuscular Volume 64fL (79-100) Mean Corpuscular Hemoglobin 20pg (25-35) Mean Corpuscular Hemoglobin Concent 32g/dL (31-37) Red Cell Distribution Width 15.6% (11.5-14.5) Platelet Count 204x10^3/uL (140-400) Neutrophils (%) (Auto) 58% (31-73) Lymphocytes (%) (Auto) 32% (24-48) Monocytes (%) (Auto) 10% (0-9) Eosinophils (%) (Auto) 0% (0-3) Basophils (%) (Auto) 0% (0-3) Neutrophils # (Auto) 4.4x10^3uL (1.8-7.7) Lymphocytes # (Auto) 2.4x10^3/uL (1.0-4.8) Monocytes # (Auto) 0.7x10^3/uL (0.0-1.1) Eosinophils # (Auto) 0.0x10^3/uL (0.0-0.7) Basophils # (Auto) 0.0x10^3/uL (0.0-0.2) Sodium Level 141mmol/L (136-145) Potassium Level 4.0mmol/L (3.5-5.1) Chloride Level 102mmol/L (98-107) Carbon Dioxide Level 29mmol/L (21-32) Anion Gap 10 (6-14) Blood Urea Nitrogen 27mg/dL (7-20) Creatinine 0.8mg/dL (0.6-1.0) Estimated GFR (Cockcroft-Gault) 89.5 Glucose Level 136mg/dL (70-99) Calcium Level 9.5mg/dL (8.5-10.1) Microbiology 02/06/17 Gram Stain - Final, Complete Medications Current Medications Sodium Chloride (Iv Sodium Chloride 0.9% 1000ml Bag) 1,000 ml @ 1,000 mls/hr Q1H IV Last administered on 02/04/17t 22:09; Start 02/04/17 at 21:45; Stop at 22:44; Status DC Albuterol/ Ipratropium (Duoneb) 3 ml 1X ONCE NEB Last administered on 00:17; Start 02/04/17 at 21:45; Stop 02/04/17 at 21:46; Status DC Prednisone (Prednisone) 60 mg 1X ONCE PO ; Start 02/04/17 at 21:45; Stop at 21:46; Status DC Aspirin (Children'S Aspirin) 324 mg 1X ONCE PO Last administered on 02/04/17 22:09; Start 02/04/17 at 21:45; Stop 02/04/17 at 21:46; Status DC Ondansetron HCl (Zofran) 4 mg PRN Q8HRS PRN IV NAUSEA/VOMITING Last administered on 02/05/17 12:17; Start 02/05/17 at 00:00; Stop 02/05/17 at 23:59 ; Status DC Morphine Sulfate 4 mg PRN Q2HR PRN IV PAIN Last administered on 02/05/17 17:13 ; Start 02/05/17 at 00:00; Stop 02/05/17 at 23:59; Status DC Acetaminophen (Tylenol) 650 mg PRN Q4HRS PRN PO FEVER Last administered on 02/05 23:47; Start 02/05/17 at 00:00; Stop 02/05/17 at 23:59; Status DC Albuterol/ Ipratropium (Duoneb) 3 ml RTQID NEB Last administered on 02/05/17 11:01; Start 02/05/17 at 08:00; Stop 02/05/17 at 11:40; Status DC Acetaminophen/ Hydrocodone Bitart ([place] 5/325) 1 tab PRN Q6HRS PRN PO PAIN Last administered on 02/06/17 20:09; Start 02/05/17 at 11:45 Albuterol/ Ipratropium (Duoneb) 3 ml RTQID NEB Last administered on 02/07/17 06:51; Start 02/05/17 at 12:00 Prednisone (Prednisone) 50 mg BID PO Last administered on 02/06/17 09:27; Start 02/05/17 at 21:00 Pantoprazole Sodium (Protonix) 40 mg DAILYAC PO Last administered on 02/06/17 09:27; Start 02/05/17 at 13:00 Lorazepam (Ativan) 1 mg PRN Q6HRS PRN PO ANXIETY / AGITATION Last administered on 02/06/17 06:37; Start 02/05/17 at 12:45 Multi-Ingredient Mouthwash/Gargle (Gi Cocktail Single Dose) 15 ml PRN TID PRN SWSW CHEST PAIN Last administered on 02/05/17 17:14; Start 02/05/17 at 14:30 Ondansetron HCl (Zofran) 4 mg PRN Q6HRS PRN IV NAUSEA/VOMITING Last administered on 02/07/17 04:39; Start 02/06/17 at 22:00 Morphine Sulfate 2 mg PRN Q4HRS PRN IV SEVERE PAIN; Start 02/07/17 at 03:45 Lorazepam 0.5 mg 0.5 mg PRN Q6HRS PRN PO ANXIETY / AGITATION; Start 02/07/17 at 03:45; Stop 02/07/17 at 04:47; Status DC Sodium Chloride (Iv Sodium Chloride 0.9% 1000ml Bag) 1,000 ml @ 50 mls/hr Q20H IV Last administered on 02/07/17 04:35; Start 02/07/17 at 04:30 Lorazepam (Ativan) 0.5 mg PRN Q6HRS PRN IV ANXIETY / AGITATION Last administered on 02/07/17 04:57; Start 02/07/17 at 04:45 Barium Sulfate (Liquid E-Z Paque) 355 ml 1X ONCE PO Last administered on 08:53; Start 02/07/17 at 08:00; Stop 02/07/17 at 08:08; Status DC Barium Sulfate (E-Z-Hd) 135 ml 1X ONCE PO Last administered on 02/07/17 08:52 ; Start 02/07/17 at 08:00; Stop 02/07/17 at 08:08; Status DC Simethicone/ Sodium Bicarb/ Citric Ac (E-Z-Gas) 1 packet 1X ONCE PO ; Start at 08:00; Stop 02/07/17 at 08:08; Status DC Active Scripts Active [place] 5-325 Tablet (Acetaminophen/Hydrocodone Bitart) 1 Each Tablet 1 Tab PO PRN Q6HRS PRN [place] 5-325 Tablet (Acetaminophen/Hydrocodone Bitart) 1 Each Tablet 1 Tab PO PRN Q6HRS PRN Reported Prednisone 50 Mg Tablet 1 Tab PO BID Combivent Respimat Inhal (Ipratropium/Albuterol Sulfate) 4 Gm Aer.w.adap 2 Inh IH QID Vitals/I & O Vital Sign - Last 24 Hours 02/06/17 02/06/17 02/06/17 02/06/17 14:51 15:00 19:00 19:23 Temp 98.1 98.6 98.1 98.6 Pulse 81 69 Resp 18 B/P 126/78 136/77 Pulse Ox 99 98 98 100 O2 Delivery Room Air Nasal Cannula Nasal Cannula Room Air O2 Flow Rate 2.0 2.0 02/06/17 02/06/17 02/06/17 02/07/17 20:00 20:09 23:00 03:00 Temp 98.8 98.4 98.8 98.4 Pulse 76 74 Resp 18 B/P 141/83 142/66 Pulse Ox 97 97 O2 Delivery Nasal Cannula Room Air Nasal Cannula Nasal Cannula O2 Flow Rate 4.0 2.0 2.0 02/07/17 02/07/17 06:51 09:47 Pulse Ox 100 O2 Delivery Nasal Cannula Nasal Cannula O2 Flow Rate 2.0 2.0 Intake and Output 02/06/17 02/06/17 02/07/17 15:00 23:00 07:00 Intake Total 0 ml 100 ml Output Total 650 ml Balance -650 ml 100 ml Problem List Problems Medical Problems: (1) Chest pain Status: Acute (2) COPD with acute exacerbation Status: Acute Assessment Dysphagia- with possible stricture, will proceed with upper endoscopy in am, liquids today, npo post midnight TEJAS MERRITT MD Feb 07, 2017 11:44
--- NOTE | 2017-02-07 12:55 | PDOC ---
PROGRESS NOTES Chief Complaint Chief Complaint 1. Acute exacerbation of chronic obstructive pulmonary disease. 2. Chest pain. Workup in progress per Cardiology. 3. History of breast cancer, status post radiation and chemo. History of Present Illness History of Present Illness Patient came back from esophagogram and she was npo after midnight, she was in no acute distress, she found to have stricture in esophagus, GI plan to do endoscopy probably tomorrow, agree with their plan. Last night, pt. became emotional, agitated, and was upset that she is not getting anything to eat even after explaining npo status for esophagogram in AM, jose busby was called and her room changed as well. Plan of care discussed with pt. and her sister present in the room at the time of evaluation. Vitals Vitals Vital Signs Date Time Temp Pulse Resp B/P Pulse Ox O2 Delivery O2 Flow Rate FiO2 02/07/17 09:47 Nasal Cannula 2.0 02/07/17 06:51 100 02/07/17 03:00 98.4 74 18 142/66 98.4 Physical Exam General: Alert, Oriented X3, Cooperative, No acute distress Heart: Regular rate, Normal S1, Normal S2, Other (left chest wall tenderness upon palpitation) Lungs: Clear Abdomen: Soft Extremities: No edema Skin: No breakdown, No significant lesion Labs LABS Laboratory Tests Test 02/07/17 03:10 White Blood Count 7.5x10^3/uL (4.0-11.0) Red Blood Count 6.20x10^6/uL (3.50-5.40) Hemoglobin 12.5g/dL (12.0-15.5) Hematocrit 39.4% (36.0-47.0) Mean Corpuscular Volume 64fL (79-100) Mean Corpuscular Hemoglobin 20pg (25-35) Mean Corpuscular Hemoglobin Concent 32g/dL (31-37) Red Cell Distribution Width 15.6% (11.5-14.5) Platelet Count 204x10^3/uL (140-400) Neutrophils (%) (Auto) 58% (31-73) Lymphocytes (%) (Auto) 32% (24-48) Monocytes (%) (Auto) 10% (0-9) Eosinophils (%) (Auto) 0% (0-3) Basophils (%) (Auto) 0% (0-3) Neutrophils # (Auto) 4.4x10^3uL (1.8-7.7) Lymphocytes # (Auto) 2.4x10^3/uL (1.0-4.8) Monocytes # (Auto) 0.7x10^3/uL (0.0-1.1) Eosinophils # (Auto) 0.0x10^3/uL (0.0-0.7) Basophils # (Auto) 0.0x10^3/uL (0.0-0.2) Sodium Level 141mmol/L (136-145) Potassium Level 4.0mmol/L (3.5-5.1) Chloride Level 102mmol/L (98-107) Carbon Dioxide Level 29mmol/L (21-32) Anion Gap 10 (6-14) Blood Urea Nitrogen 27mg/dL (7-20) Creatinine 0.8mg/dL (0.6-1.0) Estimated GFR (Cockcroft-Gault) 89.5 Glucose Level 136mg/dL (70-99) Calcium Level 9.5mg/dL (8.5-10.1) Review of Systems Review of Systems Alert, awake, oriented Denies SOB, CP Assessment and Plan Assessmemt and Plan Assessmemt and Plan 1. Acute exacerbation of chronic obstructive pulmonary disease. 2. Chest pain. Workup in progress per Cardiology. 3. History of breast cancer, status post radiation and chemo. Plan Plan . PLAN: GI work up is in progress Continue nebulized treatments and Steroids per Pul. recommendations Recheck labs in AM PTOT Appreciate subspecialities inputs and recommendations Problems Medical Problems: (1) Chest pain Status: Acute (2) COPD with acute exacerbation Status: Acute Problems: Comment Review of Relevant I have reviewed the following items roger (where applicable) has been applied. Labs Laboratory Tests Test 02/06/17 03:21 02/07/17 03:10 White Blood Count 8.6x10^3/uL (4.0-11.0) 7.5x10^3/uL (4.0-11.0) Red Blood Count 6.09x10^6/uL (3.50-5.40) 6.20x10^6/uL (3.50-5.40) Hemoglobin 12.5g/dL (12.0-15.5) 12.5g/dL (12.0-15.5) Hematocrit 38.6% (36.0-47.0) 39.4% (36.0-47.0) Mean Corpuscular Volume 63fL (79-100) 64fL (79-100) Mean Corpuscular Hemoglobin 21pg (25-35) 20pg (25-35) Mean Corpuscular Hemoglobin Concent 32g/dL (31-37) 32g/dL (31-37) Red Cell Distribution Width 15.4% (11.5-14.5) 15.6% (11.5-14.5) Platelet Count 198x10^3/uL (140-400) 204x10^3/uL (140-400) Neutrophils (%) (Auto) 80% (31-73) 58% (31-73) Lymphocytes (%) (Auto) 17% (24-48) 32% (24-48) Monocytes (%) (Auto) 3% (0-9) 10% (0-9) Eosinophils (%) (Auto) 0% (0-3) 0% (0-3) Basophils (%) (Auto) 0% (0-3) 0% (0-3) Neutrophils # (Auto) 6.8x10^3uL (1.8-7.7) 4.4x10^3uL (1.8-7.7) Lymphocytes # (Auto) 1.4x10^3/uL (1.0-4.8) 2.4x10^3/uL (1.0-4.8) Monocytes # (Auto) 0.3x10^3/uL (0.0-1.1) 0.7x10^3/uL (0.0-1.1) Eosinophils # (Auto) 0.0x10^3/uL (0.0-0.7) 0.0x10^3/uL (0.0-0.7) Basophils # (Auto) 0.0x10^3/uL (0.0-0.2) 0.0x10^3/uL (0.0-0.2) Sodium Level 140mmol/L (136-145) 141mmol/L (136-145) Potassium Level 4.2mmol/L (3.5-5.1) 4.0mmol/L (3.5-5.1) Chloride Level 102mmol/L (98-107) 102mmol/L (98-107) Carbon Dioxide Level 24mmol/L (21-32) 29mmol/L (21-32) Anion Gap 14 (6-14) 10 (6-14) Blood Urea Nitrogen 15mg/dL (7-20) 27mg/dL (7-20) Creatinine 0.8mg/dL (0.6-1.0) 0.8mg/dL (0.6-1.0) Estimated GFR (Cockcroft-Gault) 89.5 89.5 Glucose Level 116mg/dL (70-99) 136mg/dL (70-99) Calcium Level 9.4mg/dL (8.5-10.1) 9.5mg/dL (8.5-10.1) Triglycerides Level 48mg/dL (0-150) Cholesterol Level 231mg/dL (0-200) LDL Cholesterol, Calculated 160mg/dL (0-100) VLDL Cholesterol, Calculated 10mg/dL (0-40) HDL Cholesterol 61mg/dL (40-60) Cholesterol/HDL Ratio 3.8 Laboratory Tests Test 02/07/17 03:10 White Blood Count 7.5x10^3/uL (4.0-11.0) Red Blood Count 6.20x10^6/uL (3.50-5.40) Hemoglobin 12.5g/dL (12.0-15.5) Hematocrit 39.4% (36.0-47.0) Mean Corpuscular Volume 64fL (79-100) Mean Corpuscular Hemoglobin 20pg (25-35) Mean Corpuscular Hemoglobin Concent 32g/dL (31-37) Red Cell Distribution Width 15.6% (11.5-14.5) Platelet Count 204x10^3/uL (140-400) Neutrophils (%) (Auto) 58% (31-73) Lymphocytes (%) (Auto) 32% (24-48) Monocytes (%) (Auto) 10% (0-9) Eosinophils (%) (Auto) 0% (0-3) Basophils (%) (Auto) 0% (0-3) Neutrophils # (Auto) 4.4x10^3uL (1.8-7.7) Lymphocytes # (Auto) 2.4x10^3/uL (1.0-4.8) Monocytes # (Auto) 0.7x10^3/uL (0.0-1.1) Eosinophils # (Auto) 0.0x10^3/uL (0.0-0.7) Basophils # (Auto) 0.0x10^3/uL (0.0-0.2) Sodium Level 141mmol/L (136-145) Potassium Level 4.0mmol/L (3.5-5.1) Chloride Level 102mmol/L (98-107) Carbon Dioxide Level 29mmol/L (21-32) Anion Gap 10 (6-14) Blood Urea Nitrogen 27mg/dL (7-20) Creatinine 0.8mg/dL (0.6-1.0) Estimated GFR (Cockcroft-Gault) 89.5 Glucose Level 136mg/dL (70-99) Calcium Level 9.5mg/dL (8.5-10.1) Microbiology 02/06/17 Gram Stain - Final, Complete Medications Current Medications Sodium Chloride (Iv Sodium Chloride 0.9% 1000ml Bag) 1,000 ml @ 1,000 mls/hr Q1H IV Last administered on 02/04/17 22:09; Start 02/04/17 at 21:45; Stop at 22:44; Status DC Albuterol/ Ipratropium (Duoneb) 3 ml 1X ONCE NEB Last administered on 00:17; Start 02/04/17 at 21:45; Stop 02/04/17 at 21:46; Status DC Prednisone (Prednisone) 60 mg 1X ONCE PO ; Start 02/04/17 at 21:45; Stop at 21:46; Status DC Aspirin (Children'S Aspirin) 324 mg 1X ONCE PO Last administered on 02/04/17 22:09; Start 02/04/17 at 21:45; Stop 02/04/17 at 21:46; Status DC Ondansetron HCl (Zofran) 4 mg PRN Q8HRS PRN IV NAUSEA/VOMITING Last administered on 02/05/17 12:17; Start 02/05/17 at 00:00; Stop 02/05/17 at 23:59 ; Status DC Morphine Sulfate 4 mg PRN Q2HR PRN IV PAIN Last administered on 02/05/17 17:13 ; Start 02/05/17 at 00:00; Stop 02/05/17 at 23:59; Status DC Acetaminophen (Tylenol) 650 mg PRN Q4HRS PRN PO FEVER Last administered on 02/05 23:47; Start 02/05/17 at 00:00; Stop 02/05/17 at 23:59; Status DC Albuterol/ Ipratropium (Duoneb) 3 ml RTQID NEB Last administered on 02/05/17 11:01; Start 02/05/17 at 08:00; Stop 02/05/17 at 11:40; Status DC Acetaminophen/ Hydrocodone Bitart (Lortab 5/325) 1 tab PRN Q6HRS PRN PO PAIN Last administered on 02/06/17 20:09; Start 02/05/17 at 11:45 Albuterol/ Ipratropium (Duoneb) 3 ml RTQID NEB Last administered on 02/07/17 06:51; Start 02/05/17 at 12:00 Prednisone (Prednisone) 50 mg BID PO Last administered on 02/06/17 09:27; Start 02/05/17 at 21:00 Pantoprazole Sodium (Protonix) 40 mg DAILYAC PO Last administered on 02/06/17 09:27; Start 02/05/17 at 13:00 Lorazepam (Ativan) 1 mg PRN Q6HRS PRN PO ANXIETY / AGITATION Last administered on 02/06/17 06:37; Start 02/05/17 at 12:45 Multi-Ingredient Mouthwash/Gargle (Gi Cocktail Single Dose) 15 ml PRN TID PRN SWSW CHEST PAIN Last administered on 02/05/17 17:14; Start 02/05/17 at 14:30 Ondansetron HCl (Zofran) 4 mg PRN Q6HRS PRN IV NAUSEA/VOMITING Last administered on 02/07/17 04:39; Start 02/06/17 at 22:00 Morphine Sulfate 2 mg PRN Q4HRS PRN IV SEVERE PAIN; Start 02/07/17 at 03:45 Lorazepam 0.5 mg 0.5 mg PRN Q6HRS PRN PO ANXIETY / AGITATION; Start 02/07/17 at 03:45; Stop 02/07/17 at 04:47; Status DC Sodium Chloride (Iv Sodium Chloride 0.9% 1000ml Bag) 1,000 ml @ 50 mls/hr Q20H IV Last administered on 02/07/17 04:35; Start 02/07/17 at 04:30 Lorazepam (Ativan) 0.5 mg PRN Q6HRS PRN IV ANXIETY / AGITATION Last administered on 02/07/17 04:57; Start 02/07/17 at 04:45 Barium Sulfate (Liquid E-Z Paque) 355 ml 1X ONCE PO Last administered on 08:53; Start 02/07/17 at 08:00; Stop 02/07/17 at 08:08; Status DC Barium Sulfate (E-Z-Hd) 135 ml 1X ONCE PO Last administered on 02/07/17 08:52 ; Start 02/07/17 at 08:00; Stop 02/07/17 at 08:08; Status DC Simethicone/ Sodium Bicarb/ Citric Ac (E-Z-Gas) 1 packet 1X ONCE PO ; Start at 08:00; Stop 02/07/17 at 08:08; Status DC Active Scripts Active [place] 5-325 Tablet (Acetaminophen/Hydrocodone Bitart) 1 Each Tablet 1 Tab PO PRN Q6HRS PRN [place] 5-325 Tablet (Acetaminophen/Hydrocodone Bitart) 1 Each Tablet 1 Tab PO PRN Q6HRS PRN Reported Prednisone 50 Mg Tablet 1 Tab PO BID Combivent Respimat Inhal (Ipratropium/Albuterol Sulfate) 4 Gm Aer.w.adap 2 Inh IH QID Vitals/I & O Vital Sign - Last 24 Hours 02/06/17 02/06/17 02/06/17 02/06/17 14:51 15:00 19:00 19:23 Temp 98.1 98.6 98.1 98.6 Pulse 81 69 Resp 19 18 B/P 126/78 136/77 Pulse Ox 99 98 98 100 O2 Delivery Room Air Nasal Cannula Nasal Cannula Room Air O2 Flow Rate 2.0 2.0 02/06/17 02/06/17 02/06/17 02/07/17 20:00 20:09 23:00 03:00 Temp 98.8 98.4 98.8 98.4 Pulse 76 74 Resp 18 B/P 141/83 142/66 Pulse Ox 97 97 O2 Delivery Nasal Cannula Room Air Nasal Cannula Nasal Cannula O2 Flow Rate 4.0 2.0 2.0 02/07/17 02/07/17 06:51 09:47 Pulse Ox 100 O2 Delivery Nasal Cannula Nasal Cannula O2 Flow Rate 2.0 2.0 Intake and Output 02/06/17 02/06/17 02/07/17 15:00 23:00 07:00 Intake Total 0 ml 100 ml Output Total 650 ml Balance -650 ml 100 ml BIBI RIDER III DO Feb 07, 2017 12:55
[2017-02-07] MEDS: ACETAMINOPHEN 325 MG TABLET. PO PRN ×2 (13:24→20:52)
[2017-02-07 15:16] VITALS: BP 125/74
[2017-02-07 19:00] VITALS: BP 102/73
[2017-02-07] MEDS: LORAZEPAM 1 MG TABLET. PO PRN (20:59)
[2017-02-07] MEDS: LIDO:MAALOX:DONNATAL 1:1:1 15 ML SINGLE DOSE SWSW PRN (21:00)
[2017-02-07 23:00] VITALS: BP 105/57
[2017-02-08] MEDS ORDERED: PIPERACILLIN/TAZOBACTAM 3.375 GM in IV NORMAL SALINE 50ML 50 ML IV SCH ×2
[2017-02-08] MEDS: IV NORMAL SALINE 1000ML BAG 1,000 ML IV SCH (00:28)
[2017-02-08 03:00] VITALS: BP 109/70
[2017-02-08 05:57] LABS: BASO % 0 % (0-3); EOS % 0 % (0-3); HEMATOCRIT 36.5 % (36.0-47.0); HEMOGLOBIN 11.4 g/dL (12.0-15.5); LYMPH # 1.2 x10^3/uL (1.0-4.8); LYMPH % 18 % (24-48); MEAN CORPUSCULAR HEMOGLOBIN 20 pg (25-35); MEAN CORPUSCULAR HGB CONC 31 g/dL (31-37); MEAN CORPUSCULAR VOLUME 64 fL (79-100); MONO % 16 % (0-9); NEUT % 66 % (31-73); PLATELET COUNT 163 x10^3/uL (140-400); RED BLOOD COUNT 5.73 x10^6/uL (3.50-5.40); RED CELL DISTRIBUTION WIDTH 15.5 % (11.5-14.5); WHITE BLOOD COUNT 6.5 x10^3/uL (4.0-11.0)
[2017-02-08 06:11] LABS: CALCIUM 8.7 mg/dL (8.5-10.1); CREATININE 0.8 mg/dL (0.6-1.0); GFR 89.5; POTASSIUM 3.7 mmol/L (3.5-5.1)
[2017-02-08 07:10] VITALS: BP 121/82
[2017-02-08] MEDS: IPRATRPIUM/ALBUTEROL 0.5/2.5MG 3 ML NEBU. NEB SCH ×3 (08:00→16:35)
[2017-02-08] MEDS ORDERED: IV RINGERS,LACTATED 1000ML 1,000 ML IV SCH (10:42)
[2017-02-08] MEDS ORDERED: FENTANYL PF 100 MCG/2 ML VIAL. IV PRN ×2 (10:45)
[2017-02-08] MEDS ORDERED: MIDAZOLAM HCL 2 MG/2 ML VIAL. IV PRN (10:45)
[2017-02-08] MEDS ORDERED: LIDOCAINE 1% 1 ML SYRINGE. ID PRN (10:45)
--- NOTE | 2017-02-08 11:13 | PDOC ---
PROGRESS NOTES Chief Complaint Chief Complaint 1. Acute exacerbation of chronic obstructive pulmonary disease. 2. Chest pain. Workup in progress per Cardiology. 3. History of breast cancer, status post radiation and chemo. History of Present Illness History of Present Illness Patient was laying in the bed, sister was at the bedside. Pt. was feeling little better, reported no overnight acute events. Had fever yesterday after esophagogram so antibiotic started, afebrile today. GI planned to do EGD, consent signed. Plan of care discussed with pt. sister and RN. Vitals Vitals Vital Signs Date Time Temp Pulse Resp B/P Pulse Ox O2 Delivery O2 Flow Rate FiO2 02/08/17 10:37 99.2 78 20 97 99.2 02/08/17 10:35 Nasal Cannula 2.0 02/08/17 07:10 121/82 Physical Exam General: Alert, Oriented X3, Cooperative, No acute distress Heart: Regular rate, Normal S1, Normal S2, Other (left chest wall tenderness upon palpitation) Lungs: Clear Abdomen: Soft Extremities: No edema Skin: No breakdown, No significant lesion Labs LABS Laboratory Tests Test 02/08/17 05:25 White Blood Count 6.5x10^3/uL (4.0-11.0) Red Blood Count 5.73x10^6/uL (3.50-5.40) Hemoglobin 11.4g/dL (12.0-15.5) Hematocrit 36.5% (36.0-47.0) Mean Corpuscular Volume 64fL (79-100) Mean Corpuscular Hemoglobin 20pg (25-35) Mean Corpuscular Hemoglobin Concent 31g/dL (31-37) Red Cell Distribution Width 15.5% (11.5-14.5) Platelet Count 163x10^3/uL (140-400) Neutrophils (%) (Auto) 66% (31-73) Lymphocytes (%) (Auto) 18% (24-48) Monocytes (%) (Auto) 16% (0-9) Eosinophils (%) (Auto) 0% (0-3) Basophils (%) (Auto) 0% (0-3) Neutrophils # (Auto) 4.3x10^3uL (1.8-7.7) Lymphocytes # (Auto) 1.2x10^3/uL (1.0-4.8) Monocytes # (Auto) 1.1x10^3/uL (0.0-1.1) Eosinophils # (Auto) 0.0x10^3/uL (0.0-0.7) Basophils # (Auto) 0.0x10^3/uL (0.0-0.2) Sodium Level 139mmol/L (136-145) Potassium Level 3.7mmol/L (3.5-5.1) Chloride Level 101mmol/L (98-107) Carbon Dioxide Level 26mmol/L (21-32) Anion Gap 12 (6-14) Blood Urea Nitrogen 21mg/dL (7-20) Creatinine 0.8mg/dL (0.6-1.0) Estimated GFR (Cockcroft-Gault) 89.5 Glucose Level 85mg/dL (70-99) Calcium Level 8.7mg/dL (8.5-10.1) Review of Systems Review of Systems Denies fever, chills Denies SOB, CP Had cough but no sputum Awake, alert, oriented Assessment and Plan Assessmemt and Plan Assessmemt and Plan 1. Acute exacerbation of chronic obstructive pulmonary disease. 2. Chest pain. Workup in progress per Cardiology. 3. History of breast cancer, status post radiation and chemo. Plan Plan . PLAN: GI work up is in progress, waiting for EGD Continue antibiotics Pulmonary signed off as pt. doing better Recheck labs in AM PTOT Appreciate subspecialities inputs and recommendations Problems Medical Problems: (1) Chest pain Status: Acute (2) COPD with acute exacerbation Status: Acute Problems: Comment Review of Relevant I have reviewed the following items roger (where applicable) has been applied. Labs Laboratory Tests Test 02/07/17 03:10 02/08/17 05:25 White Blood Count 7.5x10^3/uL (4.0-11.0) 6.5x10^3/uL (4.0-11.0) Red Blood Count 6.20x10^6/uL (3.50-5.40) 5.73x10^6/uL (3.50-5.40) Hemoglobin 12.5g/dL (12.0-15.5) 11.4g/dL (12.0-15.5) Hematocrit 39.4% (36.0-47.0) 36.5% (36.0-47.0) Mean Corpuscular Volume 64fL (79-100) 64fL (79-100) Mean Corpuscular Hemoglobin 20pg (25-35) 20pg (25-35) Mean Corpuscular Hemoglobin Concent 32g/dL (31-37) 31g/dL (31-37) Red Cell Distribution Width 15.6% (11.5-14.5) 15.5% (11.5-14.5) Platelet Count 204x10^3/uL (140-400) 163x10^3/uL (140-400) Neutrophils (%) (Auto) 58% (31-73) 66% (31-73) Lymphocytes (%) (Auto) 32% (24-48) 18% (24-48) Monocytes (%) (Auto) 10% (0-9) 16% (0-9) Eosinophils (%) (Auto) 0% (0-3) 0% (0-3) Basophils (%) (Auto) 0% (0-3) 0% (0-3) Neutrophils # (Auto) 4.4x10^3uL (1.8-7.7) 4.3x10^3uL (1.8-7.7) Lymphocytes # (Auto) 2.4x10^3/uL (1.0-4.8) 1.2x10^3/uL (1.0-4.8) Monocytes # (Auto) 0.7x10^3/uL (0.0-1.1) 1.1x10^3/uL (0.0-1.1) Eosinophils # (Auto) 0.0x10^3/uL (0.0-0.7) 0.0x10^3/uL (0.0-0.7) Basophils # (Auto) 0.0x10^3/uL (0.0-0.2) 0.0x10^3/uL (0.0-0.2) Sodium Level 141mmol/L (136-145) 139mmol/L (136-145) Potassium Level 4.0mmol/L (3.5-5.1) 3.7mmol/L (3.5-5.1) Chloride Level 102mmol/L (98-107) 101mmol/L (98-107) Carbon Dioxide Level 29mmol/L (21-32) 26mmol/L (21-32) Anion Gap 10 (6-14) 12 (6-14) Blood Urea Nitrogen 27mg/dL (7-20) 21mg/dL (7-20) Creatinine 0.8mg/dL (0.6-1.0) 0.8mg/dL (0.6-1.0) Estimated GFR (Cockcroft-Gault) 89.5 89.5 Glucose Level 136mg/dL (70-99) 85mg/dL (70-99) Calcium Level 9.5mg/dL (8.5-10.1) 8.7mg/dL (8.5-10.1) Laboratory Tests Test 02/08/17 05:25 White Blood Count 6.5x10^3/uL (4.0-11.0) Red Blood Count 5.73x10^6/uL (3.50-5.40) Hemoglobin 11.4g/dL (12.0-15.5) Hematocrit 36.5% (36.0-47.0) Mean Corpuscular Volume 64fL (79-100) Mean Corpuscular Hemoglobin 20pg (25-35) Mean Corpuscular Hemoglobin Concent 31g/dL (31-37) Red Cell Distribution Width 15.5% (11.5-14.5) Platelet Count 163x10^3/uL (140-400) Neutrophils (%) (Auto) 66% (31-73) Lymphocytes (%) (Auto) 18% (24-48) Monocytes (%) (Auto) 16% (0-9) Eosinophils (%) (Auto) 0% (0-3) Basophils (%) (Auto) 0% (0-3) Neutrophils # (Auto) 4.3x10^3uL (1.8-7.7) Lymphocytes # (Auto) 1.2x10^3/uL (1.0-4.8) Monocytes # (Auto) 1.1x10^3/uL (0.0-1.1) Eosinophils # (Auto) 0.0x10^3/uL (0.0-0.7) Basophils # (Auto) 0.0x10^3/uL (0.0-0.2) Sodium Level 139mmol/L (136-145) Potassium Level 3.7mmol/L (3.5-5.1) Chloride Level 101mmol/L (98-107) Carbon Dioxide Level 26mmol/L (21-32) Anion Gap 12 (6-14) Blood Urea Nitrogen 21mg/dL (7-20) Creatinine 0.8mg/dL (0.6-1.0) Estimated GFR (Cockcroft-Gault) 89.5 Glucose Level 85mg/dL (70-99) Calcium Level 8.7mg/dL (8.5-10.1) Microbiology 02/06/17 Gram Stain - Final, Complete Medications Current Medications Sodium Chloride (Iv Sodium Chloride 0.9% 1000ml Bag) 1,000 ml @ 1,000 mls/hr Q1H IV Last administered on 02/04/17 22:09; Start 02/04/17 at 21:45; Stop at 22:44; Status DC Albuterol/ Ipratropium (Duoneb) 3 ml 1X ONCE NEB Last administered on 00:17; Start 02/04/17 at 21:45; Stop 02/04/17 at 21:46; Status DC Prednisone (Prednisone) 60 mg 1X ONCE PO ; Start 02/04/17 at 21:45; Stop at 21:46; Status DC Aspirin (Children'S Aspirin) 324 mg 1X ONCE PO Last administered on 02/04/17 22:09; Start 02/04/17 at 21:45; Stop 02/04/17 at 21:46; Status DC Ondansetron HCl (Zofran) 4 mg PRN Q8HRS PRN IV NAUSEA/VOMITING Last administered on 02/05/17 12:17; Start 02/05/17 at 00:00; Stop 02/05/17 at 23:59 ; Status DC Morphine Sulfate 4 mg PRN Q2HR PRN IV PAIN Last administered on 02/05/17 17:13 ; Start 02/05/17 at 00:00; Stop 02/05/17 at 23:59; Status DC Acetaminophen (Tylenol) 650 mg PRN Q4HRS PRN PO FEVER Last administered on 02/05 23:47; Start 02/05/17 at 00:00; Stop 02/05/17 at 23:59; Status DC Albuterol/ Ipratropium (Duoneb) 3 ml RTQID NEB Last administered on 02/05/17 11:01; Start 02/05/17 at 08:00; Stop 02/05/17 at 11:40; Status DC Acetaminophen/ Hydrocodone Bitart (Lortab 5/325) 1 tab PRN Q6HRS PRN PO PAIN Last administered on 02/06/17 20:09; Start 02/05/17 at 11:45 Albuterol/ Ipratropium (Duoneb) 3 ml RTQID NEB Last administered on 02/07/17 15:52; Start 02/05/17 at 12:00 Prednisone (Prednisone) 50 mg BID PO Last administered on 02/07/17 20:53; Start 02/05/17 at 21:00 Pantoprazole Sodium (Protonix) 40 mg DAILYAC PO Last administered on 02/06/17 09:27; Start 02/05/17 at 13:00 Lorazepam (Ativan) 1 mg PRN Q6HRS PRN PO ANXIETY / AGITATION Last administered on 02/07/17 20:59; Start 02/05/17 at 12:45 Multi-Ingredient Mouthwash/Gargle (Gi Cocktail Single Dose) 15 ml PRN TID PRN SWSW CHEST PAIN Last administered on 02/07/17 21:00; Start 02/05/17 at 14:30 Ondansetron HCl (Zofran) 4 mg PRN Q6HRS PRN IV NAUSEA/VOMITING Last administered on 02/07/17 04:39; Start 02/06/17 at 22:00 Morphine Sulfate 2 mg PRN Q4HRS PRN IV SEVERE PAIN Last administered on 17:23; Start 02/07/17 at 03:45 Lorazepam 0.5 mg 0.5 mg PRN Q6HRS PRN PO ANXIETY / AGITATION; Start 02/07/17 at 03:45; Stop 02/07/17 at 04:47; Status DC Sodium Chloride (Iv Sodium Chloride 0.9% 1000ml Bag) 1,000 ml @ 50 mls/hr Q20H IV Last administered on 02/08/17 00:28; Start 02/07/17 at 04:30 Lorazepam (Ativan) 0.5 mg PRN Q6HRS PRN IV ANXIETY / AGITATION Last administered on 02/07/17 04:57; Start 02/07/17 at 04:45 Barium Sulfate (Liquid E-Z Paque) 355 ml 1X ONCE PO Last administered on 08:53; Start 02/07/17 at 08:00; Stop 02/07/17 at 08:08; Status DC Barium Sulfate (E-Z-Hd) 135 ml 1X ONCE PO Last administered on 02/07/17 08:52 ; Start 02/07/17 at 08:00; Stop 02/07/17 at 08:08; Status DC Simethicone/ Sodium Bicarb/ Citric Ac (E-Z-Gas) 1 packet 1X ONCE PO ; Start at 08:00; Stop 02/07/17 at 08:08; Status DC Acetaminophen 650 mg 650 mg PRN Q6HRS PRN PO MILD PAIN / TEMP Last administered on 02/07/17 20:52; Start 02/07/17 at 13:15 Piperacillin Sod/ Tazobactam Sod 3.375 gm/Sodium Chloride 50 ml @ 100 mls/hr Q6HRS IV ; Start 02/08/17 at 00:00; Stop 02/08/17 at 00:00; Status DC Levofloxacin/ Dextrose (LEVAQUIN 500mg PREMIX) 100 ml @ 100 mls/hr QHS IV Last administered on 02/08/17 00:29; Start 02/07/17 at 23:45 Midazolam HCl (Versed) 2 mg PRN 1X PRN IV PRIOR TO PROCEDURE; Start 02/08/17 at 10:45; Stop 02/08/17 at 18:00 Fentanyl Citrate (Fentanyl 2ml Vial) 25 mcg PRN Q5MIN PRN IV X 2 DOSES FOR PAIN ; Start 02/08/17 at 10:45; Stop 02/08/17 at 18:00 Fentanyl Citrate 50 mcg 50 mcg PRN Q5MIN PRN IV X 2 DOSES FOR PAIN; Start 02/08 at 10:45; Stop 02/08/17 at 18:00 Lactated Ringer's (Iv Lactated Ringers) 1,000 ml @ 125 mls/hr Q8H IV ; Start at 10:42; Stop 02/08/17 at 22:41 Lidocaine HCl 2 ml 1X PRN PRN ID IV START; Start 02/08/17 at 10:45; Stop at 10:44; Status UNV Active Scripts Active [place] 5-325 Tablet (Acetaminophen/Hydrocodone Bitart) 1 Each Tablet 1 Tab PO PRN Q6HRS PRN [place] 5-325 Tablet (Acetaminophen/Hydrocodone Bitart) 1 Each Tablet 1 Tab PO PRN Q6HRS PRN Reported Prednisone 50 Mg Tablet 1 Tab PO BID Combivent Respimat Inhal (Ipratropium/Albuterol Sulfate) 4 Gm Aer.w.adap 2 Inh IH QID Vitals/I & O Vital Sign - Last 24 Hours 02/07/17 02/07/17 02/07/17 02/07/17 15:16 15:53 17:23 17:40 Temp 102.7 101.5 102.7 101.5 Pulse 82 Resp 18 20 B/P 125/74 Pulse Ox 99 99 O2 Delivery Room Air Nasal Cannula Nasal Cannula O2 Flow Rate 2.0 02/07/17 02/07/17 02/07/17 02/08/17 19:00 20:00 23:00 03:00 Temp 101.1 100.8 97.9 101.1 100.8 97.9 Pulse 85 87 79 Resp 18 18 18 B/P 102/73 105/57 109/70 Pulse Ox 98 92 99 O2 Delivery Room Air Nasal Cannula Room Air Room Air O2 Flow Rate 2.0 02/08/17 02/08/17 02/08/17 07:10 10:35 10:37 Temp 99.7 99.2 99.7 99.2 Pulse 78 78 Resp 19 20 B/P 121/82 Pulse Ox 100 97 O2 Delivery Room Air Nasal Cannula O2 Flow Rate 2.0 Intake and Output 02/07/17 02/07/17 02/08/17 15:00 23:00 07:00 Intake Total 400 ml 1100 ml Balance 400 ml 1100 ml BIBI RIDER III DO Feb 08, 2017 11:12
[2017-02-08 11:20] VITALS: BP 133/90
[2017-02-08] MEDS ORDERED: PROPOFOL 20 ML IV ONE (11:27)
--- NOTE | 2017-02-08 11:47 | PDOC4 ---
Operative Note Operative Note EGD with dilation Meds Propofol 100 mg iv Pre-op dx dysphagia post-op dx Schatzki ring s/p 54 Fr dilation non-erosive gastritis Plan advance diet and activity TEJAS MERRITT MD Feb 08, 2017 11:47
[2017-02-08 12:44] VITALS: BP 133/90
[2017-02-08 15:27] VITALS: BP 122/77
== END 2017-02-08 18:00 | disposition left against medical advice (07) | DRG 189 ==
LOC: ER 21:03 → 5 NORTH 23:44
PROVIDERS: ADMIT Internal Medicine; ATTEND Internal Medicine
PROC: 0D758ZZ Dilation of Esophagus, Via Natural or Artificial Opening Endoscopic (ICD-10-PCS; principal; 2017-02-08 11:00)
DX: J96.21 Acute and chronic respiratory failure with hypoxia (principal); J44.1 Chronic obstructive pulmonary disease with (acute) exacerbation; K21.9 Gastro-esophageal reflux disease without esophagitis; F17.200 Nicotine dependence, unspecified, uncomplicated; F41.9 Anxiety disorder, unspecified; F12.90 Cannabis use, unspecified, uncomplicated; G43.909 Migraine, unspecified, not intractable, without status migrainosus; K22.2 Esophageal obstruction; K29.70 Gastritis, unspecified, without bleeding; R13.10 Dysphagia, unspecified; Z87.01 Personal history of pneumonia (recurrent); Z82.49 Family history of ischemic heart disease and other diseases of the circulatory system; Z91.040 Latex allergy status; Z88.0 Allergy status to penicillin; Z91.048 Other nonmedicinal substance allergy status; Z83.3 Family history of diabetes mellitus; Z85.3 Personal history of malignant neoplasm of breast; Z92.21 Personal history of antineoplastic chemotherapy; Z92.3 Personal history of irradiation; Z79.899 Other long term (current) drug therapy; Z79.82 Long term (current) use of aspirin
CPT/HCPCS: 36415; 71020; 74220; 80048; 80061; 82947; 84484; 85007; 85027; 87040; 87205; 87804; 93005; 93306; 94250; 94640; 94760; 96360; J1956; J2060; J2270; J2405; J2704; J7030; J7512; J7620; 97116; 97535; 99285-25

== ENCOUNTER 2017-07-19 20:23 | Emergency (ER) | payer OTHER ==
[~2017-07-19] VITALS: Ht 157.5 cm; Wt 54.4 kg
[2017-07-19 20:23] VITALS: BP 174/101
[~2017-07-19 20:23] MED LIST changes: +PRED50TA PO
[2017-07-19] MEDS ORDERED: PRED50TA PO (20:57)
[2017-07-19] MEDS ORDERED: FAMO20TA5 PO (20:57)
[2017-07-19] MEDS ORDERED: SULF1TAB24 PO (20:57)
--- NOTE | 2017-07-19 20:58 | PHYS DOC ---
Past Medical History Past Medical History: COPD, TB Additional Past Medical Histor: BREAST CANCER LEFT, RADIATION AND CHEMO IN REMISSION CURRENTLY Past Surgical History: Other Additional Past Surgical Histo: RIGHT AND LEFT TIB/FIB SX. LEFT FOOT SX. Alcohol Use: Occasionally Drug Use: Marijuana Adult General Chief Complaint Chief Complaint: INSECT BITE HPI HPI Patient is a 57 year old female with history of COPD, smoking, who presents with spider bite to the right pinky finger that happened this morning. Patient states she was doing yard work and grabbed a bunch of grass, in the grass she states there was a black and white spider which bit her. Patient denies any anaphylactic reaction symptoms. Review of Systems Review of Systems Constitutional: Denies fever or chills [] Eyes: Denies change in visual acuity, redness, or eye pain [] HENT: Denies nasal congestion or sore throat [] Respiratory: Denies cough or shortness of breath [] Cardiovascular: No additional information not addressed in HPI [] GI: Denies abdominal pain, nausea, vomiting, bloody stools or diarrhea [] : Denies dysuria or hematuria [] Musculoskeletal: Denies back pain or joint pain [] Integument: spider bite to the right pinky finger Neurologic: Denies headache, focal weakness or sensory changes [] Allergies Allergies Allergies Coded Allergies Type Severity Reaction Last Updated Verified latex Allergy Intermediate HIVES 02/08/17 Yes peach Allergy Intermediate N/V 02/08/17 Yes penicillin Allergy Intermediate HIVES/RASH 02/08/17 Yes Physical Exam Physical Exam Constitutional: Well developed, well nourished, no acute distress, non-toxic appearance. [] HENT: Normocephalic, atraumatic, bilateral external ears normal, oropharynx moist, no oral exudates, nose normal. [] Eyes: PERRLA, EOMI, conjunctiva normal, no discharge. [] Neck: Normal range of motion, no tenderness, supple, no stridor. [] Cardiovascular:Heart rate regular rhythm, no murmur [] Lungs & Thorax: Bilateral breath sounds clear to auscultation [] Abdomen: Bowel sounds normal, soft, no tenderness, no masses, no pulsatile masses. [] Skin: Proximal aspect of the right pinky finger with mild soft tissue swelling and erythema immediately. The affected area feels warm and is tender to touch. Neurovascular exam intact to the right pinky finger. Back: No tenderness, no CVA tenderness. [] Extremities: No tenderness, no cyanosis, no clubbing, ROM intact, no edema. [] Neurologic: Alert and oriented X 3, normal motor function, normal sensory function, no focal deficits noted. [] Psychologic: Affect normal, judgement normal, mood normal. [] Current Patient Data Vital Signs Vital Signs Date Time Temp Pulse Resp B/P (MAP) Pulse Ox O2 Delivery O2 Flow Rate FiO2 07/19/17 20:23 97.7 78 14 99 Room Air 97.7 EKG EKG [] Radiology/Procedures Radiology/Procedures [] Course & Med Decision Making Course & Med Decision Making Pertinent Labs and Imaging studies reviewed. (See chart for details) Patient is in the ED with spider bite to the right pinky finger she has no anaphylactic reaction symptoms. Tetanus is up-to-date. She was given prednisone , famotidine and Benadryl in the ED. She was discharged with the same as well as Bactrim. She was provided instructions to follow-up with the PCP in 1-2 weeks. Her blood pressure was 174/101 with no history of hypertension. We highly recommended she follows up with a primary care doctor to have this rechecked. We encouraged patient to consider smoking cessation. Dragon Disclaimer Dragon Disclaimer This electronic medical record was generated, in whole or in part, using a voice recognition dictation system. Departure Departure Impression: Primary Impression: Spider bite Additional Impressions: High blood pressure Smoking addiction Disposition: 01 HOME, SELF-CARE Condition: STABLE Referrals: NO PCP (PCP) Follow-up with your doctor or a doctor from the list provided as soon as possible Patient Instructions: Hypertension, Smoking Cessation, Spider Bite Additional Instructions: You were seen for a spider bite to the right pinky finger. Try to ice and elevate the extremity. Take Benadryl every 4 hours, take the prescribed prednisone and famotidine as ordered. Complete your antibiotics. Come back to the ED if symptoms worsen. Follow-up with your primary care doctor and have the blood pressure rechecked. It was 174/101, this is high, normal blood pressure is 120/80. Consider smoking cessation. Scripts Sulfamethoxazole/Trimethoprim (BACTRIM DS TABLET) 1 Each Tablet 1 TAB PO BID, #20 TAB Prov: CRISTOPHER MCCALLUM APRN 07/19/17 Famotidine (FAMOTIDINE) 20 Mg Tablet 20 MG PO DAILY, #14 TAB Prov: CRISTOPHER MCCALLUM APRN 07/19/17 Prednisone (PREDNISONE) 50 Mg Tablet 1 TAB PO DAILY, #4 TAB Prov: CRISTOPHER MCCALLUM APRN 07/19/17 Problem Qualifiers Primary Impression: Spider bite Encounter type: initial encounter Injury intent: accidental or unintentional Qualified Codes: T63.301A - Toxic effect of unspecified spider venom, accidental (unintentional), initial encounter Additional Impressions: High blood pressure Hypertension type: unspecified Qualified Codes: I10 - Essential (primary) hypertension CRISTOPHER MCCALLUM APRN Jul 19, 2017 20:58
[2017-07-19] MEDS ORDERED: diphenhydrAMINE HCL 25 MG CAPSULE PO ONE (21:30)
[2017-07-19] MEDS ORDERED: FAMOTIDINE 20 MG TABLET. PO ONE (21:30)
[2017-07-19] MEDS ORDERED: predniSONE 20 MG TABLET PO ONE (21:30)
[2017-07-19] MEDS ORDERED: traMADol 50 MG TABLET PO ONE (21:30)
== END 2017-07-19 21:12 | disposition home or self-care (01) ==
LOC: ER 20:23
DX: T63.301A Toxic effect of unspecified spider venom, accidental (unintentional), initial encounter (principal); I10 Essential (primary) hypertension; F17.200 Nicotine dependence, unspecified, uncomplicated; J44.9 Chronic obstructive pulmonary disease, unspecified; Z91.040 Latex allergy status; Z88.0 Allergy status to penicillin; Z91.018 Allergy to other foods; Y93.A6 Activity, grass drills; Y99.8 Other external cause status; Y92.096 Garden or yard of other non-institutional residence as the place of occurrence of the external cause
CPT/HCPCS: 99284; J7512; Q0163